=== PATIENT | male | born 1965 | race Caucasian/White ===

== ENCOUNTER 2020-03-05 13:22 | Inpatient (IN) | payer OTHER, SELFPAY ==
[2020-03-05] VITALS (18 sets, daily range): BP systolic 36–127; BP diastolic 24–100; PULSE 97–152; RESP 14–109; TEMP 36.9–37.2; O2SAT 31–100
--- NOTE | ~2020-03-05 | XR_ITS ---
XR chest port-a-cath/central DATE: 03/05/2020 17:45 INDICATION: Central line placement TECHNIQUE: Portable AP chest on 03/05/2020 at 1737 hours COMPARISON: 03/05/2020 portable AP chest at 1633 hours FINDINGS: Interval placement of right internal jugular jugular central venous catheter, the tip overl devang the superior vena cava. There is rightward shift of the heart mediastinum and a large left pleural effusion. Left-sided jugular catheter is again noted. There is concern for aortic or left ventricular perforati on, causing the large acute left pleural effusion and heart and mediastinal shift. The ICU nurse has been notified. Patchy bilateral pulmonary infiltrates with relatively central predominance, suggesting pulmonary luciana ma. ET and NG tubes in satisfactory position. IMPRESSION: Right internal jugular central venous catheter tip overlies superior vena cava. No eviden ce of right pneumothorax Large left pleural effusion with rightward cardiac and mediastinal shift; aortic or left ventricular perforation are a serious consideration given the sudden abrupt large pleural fluid collection on the left Reviewed, dictated and finalized at [facility]. Reviewed, dictated and finalized at location [facility]. IMPRESSION: Right internal jugular central venous catheter tip overlies superio r vena cava. No evidence of right pneumothorax Large left pleural effusion with rightward cardiac and mediastinal shift; aorti c or left ventricular perforation are a serious consideration given the sudden abrupt large pleural fluid collection on the left
--- NOTE | ~2020-03-05 | XR_ITS ---
XR chest ET placement DATE: 03/05/2020 16:40 INDICATION: ET tube placement TECHNIQUE: Portable AP chest on 03/05/2020 at 1635 hours COMPARISON: 03/05/2020 portable AP chest at 1357 hours FINDINGS: ET tube in satisfactory position approximately 2.5 cm above dionicio. Bilateral extensive pulmonary infiltrates are noted, greater centrally and in the lower lung zones, s uggesting pulmonary edema, prominently . Moderately large left pleural effusion, new since only hours before, with interval catheter overlying thoracic aorta, left ventricular area. Consider aortic or ventricular perforation. NG tube in the stomach.. IMPRESSION: New moderately large left pleural fluid collection since [address] acement; consider left ventricular or aortic perforation. Prominent increased bilateral pulmonary infiltrates since 1357 hours today since and pulmonary edema Dr. Mackenzie notified ICU nurse Juan J of the findings on 03/05/2020 at 1718 hours Reviewed, dictated and finalized at [facility]. Reviewed, dictated and finalized at location [facility]. IMPRESSION: New moderately large left pleural fluid collection since 1357 hours following catheter placement; consider left ventricular or aortic perforation. Prominent increased bilateral pulmonary infiltrates since 1357 hours today sinc e and pulmonary edema Dr. Mackenzie notified ICU nurse Juan J of the findings on 03/05/2020 at 1718 hours
--- NOTE | ~2020-03-05 | XR_ITS ---
XR chest 1V portable 03/05/2020 13:54 Indication: Cardiac arrest. STEMI. Procedure: AP portable chest Comparison: No prior studies for comparison. Findings: Endotracheal tube 2.1 cm above the dionicio. NG tube in the stomach. Mild interstitial edema. No pleural effusion or pneumothorax. Borderline heart size. Impression: 1: Mild interstitial edema. Reviewed, dictated and finalized at location A. Impression: 1: Mild interstitial edema.
--- NOTE | ~2020-03-05 | XR_ITS ---
XR abdomen NG/feed tube insert DATE: 03/05/2020 16:40 INDICATION: Orogastric tube placement TECHNIQUE: Supine portable AP view COMPARISON: 03/05/2020 portable AP chest at 1713 hours is not available from PACS at this time. FINDINGS: Limited examination, excluding a portion of the upper abdomen. NG tube in stomach. Bilateral excretion of contrast material. A small amount of contrast material outlines a Deleon cathet er in the relatively evacuated the urinary bladder lumen. IMPRESSION: OG tube in stomach Reviewed, dictated and finalized at [facility]. Reviewed, dictated and finalized at location A. IMPRESSION: OG tube in stomach
--- NOTE | 2020-03-05 13:27 | ECG_ITS ---
Measurements Intervals [place] Rate: 152 P: ME: 0 QRS: -14 QRSD: 104 T: 60 QT: 272 QTc: 433 Interpretive Statements ATRIAL FIBRILLATION WITH RAPID VENTRICULAR RESPONSE VENTRICULAR PREMATURE COMPLEXES INCOMPLETE RIGHT BUNDLE BRANCH BLOCK ANTEROLATERAL ST ELEVATION MYOCARDIAL INFARCT- ACUTE HIGH LATERAL ST ELEVATION MYOCARDIAL INFARCT- ACUTE BASELINE ARTIFACT- V1-V2 ABNORMAL ECG Electronically Signed On 03-05-2020 18:16:33 CDT by Gregory Vasquez D.O.
--- NOTE | 2020-03-05 13:42 | PC.NURSE ---
1342: ROSC achieved. EKG obtained. STEMI declared. cath team called
[2020-03-05 13:48] LABS: Alveolar/Arterial O2 Gradient 595.1 mmHg; Base Excess ABG -15.3 mEq/l (+/-2.0); Carboxyhemoglobin 0.4 % THb (0-2.0); Fractional Inspired Oxygen 100 %; HCO3 ABG 13.6 mEq/l (22.0-26.0); Methemoglobin ABG 0.4 %THb (0-1.5); Oxygen Content ABG 21.2 %vol (16.0-22.0); Oxygen Saturation ABG 90.4 % (95.0-100.0); Oxyhemoglobin 89.7 % THb (90.0-100.0); PCO2 ABG 42.2 mmHg (35.0-45.0); PO2 ABG 75.7 mmHg (80.0-100.0); PO2 FiO2 Ratio Arterial Blood 0.76 %; Reduced Hemoglobin 9.5 %THb (0-5.0); Total Hemoglobin 16.8 g/dL (12.0-18.0)
[2020-03-05 13:48] LABS: Basophils Absolute Auto 0.1 K/mm3 (0.0-0.1); Basophils Percent Auto 0.8 % (0.2-1.2); Eosinophils Absolute Auto 0.2 K/mm3 (0-0.3); Eosinophils Percent Auto 1.6 % (0-4.4); Hematocrit 49.6 % (42.0-52.0); Hemoglobin 16.7 g/dL (14.0-18.0); Immature Granulocyte Absolute 0.45 K/mm3 (0.00-0.031); Immature Granulocyte Percent A 4.3 % (0-0.5); Lymphocytes Percent Auto 42.3 % (18.3-44.2); Mean Corpuscular HGB Conc 33.7 g/dl (32-36); Mean Corpuscular Hemoglobin 29.3 pg (26-34); Mean Platelet Volume 11.8 fl (7.4-10.4); Monocytes Absolute Auto 0.9 K/mm3 (0.1-0.6); Neutrophils Absolute Auto 4.4 K/mm3 (1.3-6.7); Nucleated Red Blood Cells Absolute Auto 0.2 K/mm3 (0.0-0.012); Nucleated Red Blood Cells Perc 1.5 % (0.0-0.2); Platelet Count Result 215 k/mm3 (150-375); Red Cell Distribution Width 12.6 % (11.5-14.5); White Blood Count 10.4 K/mm3 (4.5-10.0)
[2020-03-05 13:50] LABS: Device AMBU BAG; Modified Allen's Test Pass; Site Drawn RIGHT RADIAL; pH ABG 7.125 (7.350-7.450)
--- NOTE | 2020-03-05 13:55 | PC.NURSE ---
1355: Pt taken to computer lab assistant, report given to computer lab assistant nurse
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
[2020-03-05 14:00] LABS: Alanine Aminotransferase 77 U/L (4-50); Albumin Level 3.9 g/dL (3.5-5.1); Alkaline Phosphatase 56 U/L (38-126); Anion Gap 14 mmol/L (8-16); Aspartate Amino Transferase 91 U/L (17-59); Bilirubin,Total 1.5 mg/dL (0.2-1.3); Blood Urea Nitrogen 14 mg/dL (9-20); Calcium 8.5 mg/dL (8.4-10.2); Carbon Dioxide 29 mmol/L (22-30); Chloride 102 mmol/L (98-107); Estimated Glomerular Filt Rate 45; Glucose 150 mg/dL (75-110); Lactate Dehydrogenase 716 U/L (313-618); Potassium 3.8 mmol/L (3.4-5.0); Sodium 145 mmol/L (137-145)
[2020-03-05 14:05] LABS: INR 1.1; Prothrombin Time 14.3 Seconds (11.1-14.7)
[2020-03-05 14:15] LABS: NT Pro B Type Natriuretic Pept 23 PG/ML (5-100); Troponin I 0.043 ng/mL (0.000-0.034)
--- NOTE | 2020-03-05 15:33 | ECG_ITS ---
Measurements Intervals [place] Rate: 120 P: 37 TN: 124 QRS: 57 QRSD: 84 T: 57 QT: 302 QTc: 427 Interpretive Statements SINUS TACHYCARDIA VENTRICULAR PREMATURE COMPLEXES ANTEROSEPTAL ST ELEVATION- CONSIDER ACUTE INFARCT ANTEROLATERAL MYOCARDIAL INFARCT- PROBABLY RECENT BASELINE ARTIFACT- I, II, III, AVR, AVL, AVF, V1-V4 ABNORMAL ECG Electronically Signed On 03-05-2020 18:36:37 CDT by Gregory Vasquez D.O.
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
--- NOTE | 2020-03-05 15:38 | WPDCNINT ---
Assessment and Plan Assessment and plan (1) Acute respiratory failure: Code(s): J96.00 - Acute respiratory failure, unspecified whether with hypoxia or hypercapnia Status: Acute Assessment and Plan: Acute Respiratory failure secondary to . Cardiac arrest chest x-ray showed Mild interstitial edema. ventilator settings reviewed and adjusted Continue full mechanical ventilation support to prevent hypoxemia/hypercarbia and end organ damage. check ABG Low tidal volume ventilation strategy to prevent volutrauma (2) Cardiac arrest: Code(s): I46.9 - Cardiac arrest, cause unspecified Status: Acute Assessment and Plan: asystole/ VFib/ V-tach/ PE a arrest secondary to STEMI (3) ST elevation (STEMI) myocardial infarction: Qualifiers: Involved coronary artery: unspecified coronary artery Qualified Code(s): I21.3 - ST elevation (STEMI) myocardial infarction of unspecified site Code(s): I21.3 - ST elevation (STEMI) myocardial infarction of unspecified site Status: Acute Assessment and Plan: status post PCI and stent placement to LAD Impella placed aspirin. Brilinta, statin (4) Cardiogenic shock: Code(s): R57.0 - Cardiogenic shock Status: Acute Assessment and Plan: Impella management per cardiology Levophed IVF bolus Albumin (5) Bleeding: Code(s): R58 - Hemorrhage, not elsewhere classified Status: Acute Assessment and Plan: patient has blood-tinged output from a NG and ET tube there is also some amount of blood around his gum and teeth initially it appeared that this could bee secondary to traumatic intubation as per ED physician but output continue patient has been on antiplatelet anti coagulation and may have developed stress gastritis or ulcer IV PPI ordered antiplatelet infusion has been stopped 2 units of packed red cells will be transfused especially in light of shock (6) Encephalopathy: Code(s): G93.40 - Encephalopathy, unspecified Status: Acute Assessment and Plan: When patient arrived to ICU he was following commands with all 4 extremities and appropriately nodding head to questions currently sedated (7) Pleural effusion: Code(s): J90 - Pleural effusion, not elsewhere classified Status: Acute Assessment and Plan: see below (8) Acidosis: Code(s): E87.2 - Acidosis Status: Acute Assessment and Plan: bicarb given 4 ampules till now repeat ABG pending Additional Plan Stress ulcer prophylaxis - PPI Nutrition - NPO Code Status - Full Code patient arrived from cath lab technologist status post stent placement in LAD and Impella placement. Patient was following commands and moving all extremities hence TTM protocol was not started. Soon patient became hypertensive. Due to Impella patient poor pulse and noninvasive blood pressure monitoring was inaccurate. Arterial line was placed emergent. Patient also had poor IV access and was on multiple infusions. a right IJ central venous catheter was placed emergently. ETT was adjusted as per chest x-ray. Soon patient became hypotensive. patient was given fluid bolus started on Levophed. Bicarb was given as a cirrhosis suspected. chest x-ray showed large pleural effusion. Radiology was concerned with perforation and hemothorax. Bedside ultrasound did confirm pleural effusion on the left and chest x-ray suggest shift of mediastinum with a right. cardiology was called and bedside echo was performed which was a difficult study with not much information obtained although it did not appear patient had large pericardial effusion on the echo. Type and cross was sent and blood transfusion is ordered. cardiology is planning to transfer patient to [facility]. Spoken to general surgery Dr. Orlando and requested a chest tube placement on the left to relieve pressure and will con
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
[2020-03-05] MEDS: PROPOFOL IV EMULSION 100 ML 3.3 MG IV CONT (16:00)
[2020-03-05] MEDS: EPTIFIBATIDE 0.75 MG/ML 75 MG/100 ML VIAL 17.6 MG IV CONT (16:00)
[2020-03-05 16:26] LABS: Hematocrit 42.1 % (42.0-52.0); Hemoglobin 14.5 g/dL (14.0-18.0); Mean Corpuscular HGB Conc 34.4 g/dl (32-36); Mean Corpuscular Hemoglobin 29.3 pg (26-34); Mean Corpuscular Volume 85.1 fl (80-100); Mean Platelet Volume 11.8 fl (7.4-10.4); Platelet Count Result 271 k/mm3 (150-375); Red Blood Count 4.95 M/mm3 (4.6-6.20); Red Cell Distribution Width 12.7 % (11.5-14.5); White Blood Count 19.8 K/mm3 (4.5-10.0)
--- NOTE | 2020-03-05 16:27 | WPDMODSED ---
Moderate Sedation Note-Pt Data Patient Data Allergies Allergy/AdvReac Type Severity Reaction Status Date / Time bupropion Allergy Intermediate RASH Verified 12/27/15 14:53 erythromycin base Allergy Unknown Dermatitis Verified 09/29/18 14:30 Home Medications Medication Instructions Recorded Confirmed Type levothyroxine 150 mcg tablet 150 mcg PO DAILY #30 tablet 10/12/19 11/02/19 Rx cetirizine 10 mg tablet 10 mg PO DAILY PRN 11/02/19 11/02/19 History zolpidem 10 mg tablet 10 mg PO . Q.h.s. PRN #30 tablet 02/15/20 Rx Current Medications: Active Medications Dextrose (Dextrose 50% 25 Gm/50 Ml Syringe) 12.5 gm IV PUSH PRN PRN; Protocol PRN Reason: Hypoglycemia Enoxaparin Sodium (Enoxaparin 40 Mg/0.4 Ml Syringe) 40 mg SUB-Q DAILY [facility] Famotidine (Famotidine 20 Mg Tablet) 20 mg PO Q12HR [facility] Glucagon (Glucagon For Inj 1 Mg Vial) 1 mg IM PRN PRN; Protocol PRN Reason: Hypoglycemia Glucose (Glucose Oral Gel 15 Gm Of Glucse In 37.5 Gm Tube) 15 gm PO PRN PRN; Protocol PRN Reason: Hypoglycemia Heparin Sodium (Porcine) (Heparin Sodium 5,000 Units/Ml Vial) 400 units IV PUSH PRN PRN PRN Reason: aPTT < 36 Sodium Chloride (Normal Saline Iv) 1,000 mls @ 75 mls/hr IV CONT .[id number] ONE Stop: 03/06/20 04:37 Eptifibatide (Integrilin) 75 mg in 100 mls @ 17.6 mls/hr IV CONT .[id number] [facility] Propofol (Diprivan) 100 mls @ 3.3 mls/hr IV CONT .[id number] [facility]; Protocol Dextrose (Dextrose 5% 1,000 Ml) 1,000 mls @ 100 mls/hr IVPB PRN PRN; Protocol PRN Reason: Hypoglycemia Fentanyl Citrate (Fentanyl 2,500 Mcg/Ns 250 Ml) 2,500 mcg in 250 mls @ 5 mls/hr IV CONT .Q50H [facility]; Protocol Sodium Chloride (Normal Saline Iv) 1,000 mls @ 75 mls/hr IV CONT .[id number] [facility] Heparin Sodium/Dextrose (Heparin For Impella 25,000 Units/500 Ml) 25,000 units in 500 mls @ 2 mls/hr IV CONT .Q24H [facility]; Protocol Norepinephrine Bitartrate (Levophed 8 Mg/D5w 250 Ml) 8 mg in 250 mls @ 9.375 mls/hr IV CONT .[id number] [facility]; Protocol Insulin Aspart (Insulin Aspart (*Bkc) 100 Units/Ml) 2 - 5 units SUB-Q Q6H [facility]; Protocol Levothyroxine Sodium (Levothyroxine Sodium 150 Mcg Tablet) 150 mcg PO DAILY@0630 [facility] Multi-Ingred Cream/Lotion/Oil/Oint (Mineral Oil/Petrolatum,White 1 Applic) 1 applic EACH EYE Q12HR [facility] Ticagrelor (Ticagrelor 90 Mg Tablet) 90 mg PO Q12HR [facility] Sedation/Anesthesia: No previous sedation/anesthesia problems (including family history). REPLACED BY [facility] Family History Family History Mother Patient's mother is , Onset Age: 76 Family history of throat cancer Father Family history of malignant neoplasm, Onset Age: 82 Other Family history of cardiovascular disease Social History Social History Smoking status: Never smoker Alcohol intake: current Gender identity (if verbalized by the patient): Male Mod Sed Physical Exam Physical Exam Pre Procedural Exam: Normal: Appearance, Eyes, Ears, Nose, Neck, Throat, Airway, Lungs, Heart Size, Heart Rate, Heart Rhythm, Neuro Exam, Abdomen, Liver, Kidneys, Spleen, Breasts, Genitalia, Extremities and Skin Hours since solid foods: 8 Hours since liquid intake: 8 Internal Medicine - PN: Obj Da Vital Signs Vital Signs: Vital Signs - 24 hr 03/05/20 13:55 Pulse Rate 152 H Respiratory Rate 26 H Blood Pressure 127/100 H Pulse Oximetry 92 Meds/Results Medications: Active Medications Generic Name Dose Route Start Last Admin Trade Name Freq PRN Reason Stop Dose Admin Dextrose 12.5 gm 03/05/20 15:36 Dextrose 50% 25 Gm/50 Ml Syringe IV PUSH PRN PRN Hypoglycemia Protocol Enoxaparin Sodium 40 mg 03/06/20 09:00 Enoxaparin 40 Mg/0.4 Ml Syringe SUB-Q DAILY [facility] Famotidine 20 mg 03/05/20 21:00 Famotidine 20 Mg Tablet PO Q12HR [facility] Glucagon 1 mg 03/05/20 15:36 Glucagon For Inj 1 Mg Vial IM PRN PRN Hypoglycemia Protocol Glucose 15 gm
--- NOTE | 2020-03-05 16:27 | WPDHPUPDATE1 ---
History and Physical Update Update Date/Time: 03/05/20 1300 History and Physical has been reviewed, including an updated exam of the patient. There are NO changes in the patient's condition. Risks, benefits, and alternatives have been discussed and questions answered. Patient agrees to proceed with procedure.
[2020-03-05] MEDS: fentaNYL CITRATE INJ (*CRX) 100 MCG/2 ML VIAL 50 MCG IV PUSH (16:30)
[2020-03-05] MEDS: AMIODARONE 360 MG/D5W 200 ML 360 MG/200 ML BAG 33.3 MG (16:30)
[2020-03-05] MEDS: FENTANYL 2,500MCG/NS250ML(*CRX 2,500 MCG/250 ML BAG IV CONT (16:30)
[2020-03-05 16:35] LABS: INR 1.9; Prothrombin Time 21.4 Seconds (11.1-14.7)
[2020-03-05 16:37] LABS: Partial Thromboplastin Time 74.8 SECONDS (22.3-36.8)
[2020-03-05 16:40] LABS: Base Excess ABG -6.1 mEq/l (+/-2.0); Carboxyhemoglobin 0.3 % THb (0-2.0); Fractional Inspired Oxygen 100 %; HCO3 ABG 18.6 mEq/l (22.0-26.0); Methemoglobin ABG 0.4 %THb (0-1.5); Oxygen Content ABG 20.7 %vol (16.0-22.0); Oxygen Saturation ABG 97.6 % (95.0-100.0); Oxyhemoglobin 96.6 % THb (90.0-100.0); PCO2 ABG 34.5 mmHg (35.0-45.0); PO2 ABG 105.5 mmHg (80.0-100.0); PO2 FiO2 Ratio Arterial Blood 1.05 %; Reduced Hemoglobin 2.7 %THb (0-5.0); Total Hemoglobin 15.2 g/dL (12.0-18.0); pH ABG 7.349 (7.350-7.450)
[2020-03-05 16:41] LABS: Device VENTILATOR; Modified Allen's Test Pass; Site Drawn LEFT RADIAL
[2020-03-05 16:42] LABS: Arterial Blood Gas PEEP 8 cmH2O; Arterial Blood Gas Tidal Volume 450 ml; Arterial Blood Gas Vent Mode CMV; Arterial Blood Gas Ventilator rate 18 /MIN
[2020-03-05 16:54] LABS: Lactic Acid Reflex 5.7 mmol/L (0.7-2.1)
[2020-03-05] MEDS: NOREPINEPHRINE 8 MG/D5W 250 ML 8 MG/250 ML BAG 9.4 MG IV CONT (17:00)
[2020-03-05 17:43] LABS: Hematocrit 37.3 % (42.0-52.0); Hemoglobin 12.7 g/dL (14.0-18.0)
[2020-03-05] MEDS: SODIUM CHLORIDE 0.9% IV 1,000 ML 999 ML IV CONT (18:00)
[2020-03-05] MEDS: SODIUM BICARBONATE 8.4% 50 MEQ/50 ML VIAL IV PUSH (18:00)
[2020-03-05] MEDS: SODIUM CHLORIDE 0.9% IV 1,000 ML 75 ML IV CONT (18:00)
--- NOTE | 2020-03-05 18:04 | WPDPROCEDUR ---
Procedures Central Line Placement Right IJ: Central Line Date: 03/05/20 Central Line Time: 17:00 Discussed w/ the patient/family/POA,the placement of a central venous catheter, including its clinical necessity/indication & associated potential risks, benifits and alternatives.: Yes The patient/family/POA understand(s) and acknowledge(s) the need to proceed with central venous catheter insertion as an important element of the patient's clinical management.: Yes Time Out Performed: Yes Patient Position: supine Patient placed on monitor/pulse ox: Yes Provider Prep: mask, sterile gown, sterile gloves, Max. sterile barrier precautions, cap and hand hygiene with conventional soap/water or alcohol based hand rub Central line prep: 2% Chlorhexidine scrub Sterile US Technique with sterile gel/sterile probe covers: Yes Central line lumen inserted: triple Length (cm): 16 Depth of Insertion (cm): 16 Post procedure: sutured in place, good blood return, all ports aspirated, flushed, capped, tegaderm, hemostatic disc and aseptic technique maintained throughout procedure Post procedure x-ray: tip of catheter in good position and no pneumothorax seen Patient tolerated procedure: well Complications: none
--- NOTE | 2020-03-05 18:05 | WPDPROCEDUR ---
Procedures Arterial Line Arterial Line Date: 03/05/20 Arterial Line Time: 17:45 Discussed with the patient/family/POA, the placement of an arterial catheter, including its clinical necessity/indication and associated potential risks, benefits and alternatives.: Yes Patient/family/POA and/or understands and acknowledges the need to proceed with the arterial catheter insertion as an important element of the patient's clinical management.: Yes Time Out Performed: Yes Patient Position: supine Strategic Marketing Manager Prep: sterile gown, sterile gloves, mask and hat Site: left and femoral Site Prep: chlorhexidine and sterile drape Technique used: guide wire technique Length: 12 cm Closure/Dressing: suture, antimicrobial disc and tegaderm Patient tolerated procedure: no complications Complications: none
[2020-03-05 18:21] LABS: Alveolar/Arterial O2 Gradient 478.1 mmHg; Base Excess ABG -3.4 mEq/l (+/-2.0); Carboxyhemoglobin 0.2 % THb (0-2.0); Fractional Inspired Oxygen 100 %; HCO3 ABG 20.4 mEq/l (22.0-26.0); Methemoglobin ABG 0.4 %THb (0-1.5); Oxygen Content ABG 17.5 %vol (16.0-22.0); Oxygen Saturation ABG 99.4 % (95.0-100.0); Oxyhemoglobin 97.6 % THb (90.0-100.0); PCO2 ABG 32.9 mmHg (35.0-45.0); PO2 FiO2 Ratio Arterial Blood 2.02 %; Reduced Hemoglobin 1.8 %THb (0-5.0); Site Drawn ARTLINE; Total Hemoglobin 12.4 g/dL (12.0-18.0); pH ABG 7.411 (7.350-7.450)
[2020-03-05 18:22] LABS: Arterial Blood Gas PEEP 8 cmH2O; Arterial Blood Gas Tidal Volume 450 ml; Arterial Blood Gas Vent Mode CMV; Arterial Blood Gas Ventilator rate 18 /MIN; Device VENTILATOR
--- NOTE | 2020-03-05 18:41 | PM.PROC ---
Procedure Note - Detailed Date of procedure: 03/05/20 Pre-op diagnosis: STEMI left hemothorax Post-op diagnosis: same Procedure performed: placement L 32 Fr Chest Tube Description of procedure: Patient was placed in the supine position c L arm raised. After adequate sedation was given, pt was prepped and draped in normal sterile fashion. Timeout was done to verify pt identity as well as procedure being performed. I then made an incision with 15 blade scalpel at the level of the nipple in the anterior axillary line. I then used a Megan clamp to bluntly dissect to the 4th or 5th intercostal space. Once there, I bluntly used the clamp to gain access into the chest cavity. A large amount of bright red blood was noted. I enlarged the opening with the Megan clamp. Once adequately dissected, I placed the [address] into the L chest. Immediately, 1400 ml of bright red blood was noted to fill the atrium. I then clamped the CT given the large amount of blood. Sterile dressing was then placed. Of note, the pt hemodynamics immediately improved with decompression. The pt remains in critically ill condition. Implants: L [address] Anesthesia: GETA Surgeon: Daina Hinton MD Estimated blood loss (mL): 1,500 Drains: Yes Packing: No Pathology: none sent Complications: No immediate complications Condition: critical Disposition: ICU Findings: large amount of bright red blood 1500 ml drained immediately, CT clamped
[2020-03-05 19:00] LABS: Alanine Aminotransferase 226 U/L (4-50); Albumin Level 2.7 g/dL (3.5-5.1); Alkaline Phosphatase 37 U/L (38-126); Anion Gap 11 mmol/L (8-16); Aspartate Amino Transferase 558 U/L (17-59); Bilirubin,Total 1.8 mg/dL (0.2-1.3); Blood Urea Nitrogen 17 mg/dL (9-20); Calcium 7.2 mg/dL (8.4-10.2); Carbon Dioxide 25 mmol/L (22-30); Chloride 100 mmol/L (98-107); Estimated CRCL calculation 59 ml/min; Estimated Glomerular Filt Rate 45; Glucose 253 mg/dL (75-110); Magnesium 2.6 mg/dL (1.6-2.3); Potassium 4.2 mmol/L (3.4-5.0); Sodium 136 mmol/L (137-145); Troponin I > 80.000 ng/mL (0.000-0.034)
[2020-03-05 19:19] LABS: Creatine Kinase 3023 U/L (55-170)
[2020-03-05 19:24] LABS: Reflex Lactic Acid Yes or No Add Lactic
--- NOTE | 2020-03-05 20:51 | ADMGEN ---
This patient, Peng Phillips, was admitted to Intensive Care Unit-8. Patient/family oriented to hospital policies and general routines including ID bracelet, bed and alarms, visiting hours, pain management, procedures, bathroom and other care routines, personal items, smoking policy, room service/diet, and visiting hours. Valuables list has been completed. Information on how to activate the Rapid Response Team has been discussed. Patient/Family are encouraged to report perceived risks to care and to ask questions if they do not understand what they are told or what they should do.
--- NOTE | 2020-03-05 20:51 | PC.NURSE ---
ALL TIMES APPROXIMATE. CLINICAL CARE PROVIDED PROCEEDED DOCUMENTATION DUE TO PATIENTS CRITICAL STATUS Pt. arrived to ICU 8 at 1600 with amiodarone, propofol, and Integrilin infusing. Impella in place P8 settings, impella rep at bedside, equipment checked and verified with cardiac cath team. After arrival pt sustained narrow pulse pressures and hypotension. Dr. Webster at bedside, arterial and central lines inserted. Levophed drip initiated for hypotension and titrated per verbal instruction of MD Olmstead and Darin in room. Max dose given was 30mcg/min. Dr. Olmstead and Dr. Dee at bedside obtained ultrasound imaging after critical chest xray results were called from Dr. Mackenzie with radiology. Integrilin was stopped at approximatedly [address] Olmstead due to concern patient could be bleeding inside the chest cavity. Concern for hemothroax vs rupture. Stat page placed placed to Dr. Hinton with general surgery. Dr. Hinton arrived and placed left sided chest tube with immediate spontaneous blood return. After draining approximately 1600cc of sanguinous fluid from chest cavity pulse pressures improved per impella readings. Per Jamaal Gao, and Darin, team all agreeable to leave chest tube clamped. Pt. received 4mg IV versed push for chest tube placement per Dr. Webster and Dr. Hinton verbal order. Dose confirmed with Kristine PRESLEY. Chest tube remained clamped. Dr. Olmstead confirmed transfer for patient to [facility] with receiving physician and cardiothoracic surgeon. Per medical team at bedside, the [facility] team was paged to transport patient. Per MD Healy give 3 units of PRBC and 2 unit of FFP bolus STAT. Blood products documented in TAR flowsheet. A total of 6 ampules of bicarb were administered while patient was in ICU under direct verbal order and instruction from Dr. Webster. Doses confirmed and administered. All medication titrations and administration were performed under direct order and supervision of the medical team that remained at the patients bedside including Dr. Webster with critical care and Dr. Olmstead with cardiology.
--- NOTE | 2020-03-05 21:05 | PC.NURSE ---
upon arrival to ICU patient was following commands. Per Dr. Webster no need for head CT and cancel all hypothermia protocol orders for post arrest ROSC.
--- NOTE | 2020-03-05 21:13 | PC.NURSE ---
Patient removed from ICU monitor at approximately 1915 and placed on airevac monitoring system. Pt ventilated with BVM and airevac transport ventilator. Pt. loaded into transport helicopted at approximately 1999. pt. vital signs remained labile but stable throughout transport and [facility] Fentanyl, propofol, amio, and levophed infusions sent per pump with transport team. Impella transported on confirmed setting P8. Length of time to safely transfer pt. from ICU bed to helicopter transport required approximately 45 minutes due to size of patient and life sustaining equipment transported.
--- NOTE | 2020-03-05 21:31 | PC.NURSE ---
Patients was given several updated by the medical team including Dr. Webster and Dr. Olmstead throughout procedures and care provided. at patients bedside at approximately 1830 prior to patients transfer. remained with patient until pt. taken out of ICU at approximately 1915. Condition updates given throughout time, questions answered, informed of pt. transfer as soon as bed assignment was given.
--- NOTE | 2020-03-10 10:17 | PM.TDS ---
Transfer Discharge Sum: Prov Provider Date of admission: Date of service 03/05/20 13:56 Primary care physician: UNKNOWN,DOCTOR Admitting clinician: Wily Helms MD DS: Admitting Diagnosis Admitting Diagnosis Admitting Diagnosis: STEMI DS: Discharge Diagnosis Discharge Diagnosis (1) Hemothorax: Code(s): J94.2 - Hemothorax Status: Acute Assessment and Plan: Apparently patient developed massive left hemothorax that was thought to be related to fractured ribs from the CPR. Surgery was consulted were inserted chest tube on bedside with immediate drainage of at least 1 L of bloody effusion. The chest tube was clamped given massive bleeding. Immediate resuscitation done using 3 units of packed RBCs, 2 or doses of IV albumin, 500 cc saline. I was on bedside all the time for continuous 3 hour managing along with critical care team the cardiogenic shock and the massive bleeding. I did call [facility] and discussed the case with the multifocal lens inspector and the trauma surgeon and they agreed to transfer the patient to [facility] via helicopter. (2) Cardiogenic shock: Code(s): R57.0 - Cardiogenic shock Status: Acute Assessment and Plan: Patient is has Impella and currently on Levophed given the massive bleeding (3) ST elevation (STEMI) myocardial infarction: Qualifiers: Involved coronary artery: unspecified coronary artery Qualified Code(s): I21.3 - ST elevation (STEMI) myocardial infarction of unspecified site Code(s): I21.3 - ST elevation (STEMI) myocardial infarction of unspecified site Status: Acute Assessment and Plan: Is status post STEMI with totally occluded LAD. It was stented successfully. After the stenting he was not Integrilin drip because patient was not given any aspirin or Brilinta. Plan was to keep the Integrilin for 6 hours until the aspirin and the Brilinta was given. However patient had NG tube and was vomiting and the for the aspirin and the Brilinta could not be administered. Transfer Discharge Sum: Med Medications Active and Home Medications: Home Medications levothyroxine 150 mcg tablet 150 mcg PO DAILY #30 tablet 10/12/19 [Rx Confirmed 11/02/19] cetirizine 10 mg tablet 10 mg PO DAILY PRN 11/02/19 [History Confirmed 11/02/19] zolpidem 10 mg tablet 10 mg PO . Q.h.s. PRN #30 tablet 02/15/20 [Rx] Transfer Discharge Sum: Hosp Hospital Course Hospital course: Peng Phillips is a 55 year old male no significant past medical history who was doing biking for 20 minutes when he started to have chest pain. His friend to come to the car and was driving to outside hospital and when there was close to the hospital patient apparently arrested. Chest compressions started immediately upon arrival to the hospital with defibrillation. He was in VFib and ventricular tachycardia with massive anterior ST-elevation [place]. Immediately was rushed to the [facility] laboratory with the LAD was found to be totally occluded in the proximal segment was stented successfully. Ejection fraction 35-40% with anterior wall hypokinesis. Impella was inserted. Patient was transferred to the unit and after 1 hour I was called because of low blood pressure and the chest x-ray that was done to confirm the endotracheal tube position found a massive left pleural effusion that was thought to be related to hemothorax from chest compressions and fractured ribs. Surgery was consulted were inserted chest tube on bedside with immediate drainage of at least 1 L of bloody effusion. The chest tube was clamped given massive bleeding. Immediate resuscitation done using 3 units of packed RBCs, 2 or doses of IV albumin, 500 cc saline. I was on bedside all the time for continuous 3 hour managing along with critical care team the cardiogenic shock and the massive bleeding. I did call [facility] and discussed the case with the multifocal lens inspector and the trauma surgeon and they agreed to transfer the patient to
== END 2020-03-05 20:15 | disposition short-term general hospital (02) | DRG 215 ==
LOC: ANHED 13:52 → ANHICU 14:07
PROVIDERS: Emergency Medicine; Internal Medicine; Admitting Provider Internal Medicine Cardiovascular Disease; Emergency Provider Emergency Medicine; Visit Provider Internal Medicine Cardiovascular Disease
PROC: 4A023N7 Measurement of Cardiac Sampling and Pressure, Left Heart, Percutaneous Approach (ICD-10-PCS; CPT 93452; principal; 2020-03-05 14:00)
PROC: 02HA3RZ Insertion of Short-term External Heart Assist System into Heart, Percutaneous Approach (ICD-10-PCS; 2020-03-05 14:00)
PROC: 02HA3RZ Insertion of Short-term External Heart Assist System into Heart, Percutaneous Approach (ICD-10-PCS; CPT 33979; 2020-03-05 14:00)
DX: I21.3 ST elevation (STEMI) myocardial infarction of unspecified site (principal); R57.0 Cardiogenic shock; I46.9 Cardiac arrest, cause unspecified; J96.00 Acute respiratory failure, unspecified whether with hypoxia or hypercapnia; G93.40 Encephalopathy, unspecified; J94.2 Hemothorax; E87.2 Acidosis; I25.10 Atherosclerotic heart disease of native coronary artery without angina pectoris; E03.9 Hypothyroidism, unspecified; F17.220 Nicotine dependence, chewing tobacco, uncomplicated
CPT/HCPCS: 31500; 33990; 36415; 36430; 36600; 51702; 71045; 80053; 82375; 82550; 82805; 82948; 83050; 83605; 83615; 83735; 83880; 84484; 85014; 85018; 85025; 85027; 85610; 85730; 86850; 86900; 86901; 86923; 87040; 92950; 93005; 93458; 99291; C1725; C1729; C1751; C1769; C1874; C1887; C1894; C9606; J0171; J0282; J0330; J0461; J0583; J1327; J1644; J2250; J2370; J2704; J3010; J7030; J7060; L1830; P9016; P9017

== ENCOUNTER 2020-09-22 10:30 | Outpatient (RCR) | payer OTHER, SELFPAY ==
--- NOTE | 2020-07-13 11:20 | PCCPR ---
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
== END 2020-09-26 11:02 | disposition home or self-care (01) ==
LOC: ANHCPREHAB 10:30
PROVIDERS: PCP Family Medicine
DX: Z95.5 Presence of coronary angioplasty implant and graft (principal); I25.2 Old myocardial infarction
CPT/HCPCS: 93798

== ENCOUNTER 2025-03-26 00:23 | Day surgery (SDC) | payer OTHER, SELFPAY ==
--- OUTSIDE RECORDS SUMMARY | 2010-03-17 10:15 | XMS_ITS | Continuity of Care Document ---
Author Organization [facility] Address [address] [place] [address] Phone Care Team Providers Care Insecticide Sprayer Name Role Phone Selvin Ruelas Unavailable Unavailable Procedures Procedure Date Post-op Follow-up Visit Post-op Follow-up Visit Remove Cataract, Insert Lens Office/outpatient Visit, Est Echo Exam Of Eye Office/outpatient Visit, Est Office/outpatient Visit, New Advance Directives Directive Yes / No Effective Date File Name No Information Encounters Encounter Description Practice Location Reason(s) For Visit Diagnoses Date Provider Providers Copied on Encounter [facility], [address] [place] [address] [address], [place], [place], [id number], [place] tel:[phone] [facility] No Information Oct-2 2-201 0 Jessenia Montalvo. [address] [place] , [address], [place], [address], [place]. tel:[phone] [facility], [address] [place] [address] [address], [place], [place], [id number], [place] tel:[phone] [facility] [place] No Information Oct-0 8-201 0 Jessenia Montalvo. [address], [address], [place], [address], [place]. tel:[phone] [facility], [address] [place] [address] [address], [place], [place], [id number], [place] tel:[phone] [facility] No Information 0 Jessenia Montalvo. [address] [place] [address] , [address], [place], [place], [facility], . tel:[phone] Office/outpat ient Visit, [facility], [address] [place] [address] [address], [place], [place], [id number], [place] tel:[phone] [facility] No Information 0 Jessenia Montalvo. [address] [place] [address] , [address], [place], [place], [facility], [place]. tel:[phone] Referring Provider: Selvin Pickering, [address] [place] [address] [address], [place], [facility]. tel:[phone] Office/outpat ient Visit, [facility], [address] [place] [address] [address], [place], [place], [id number], [place] tel:[phone] [facility] No Information 0 Kalia Bray. [address] [place] [address], [facility], [place]. tel:[phone] Referring Provider: Asa hutchins, [address] [place] [address], [place], [place], [facility]. tel:[phone] Office/outpat ient Visit, [facility], [address] [place] [address] [address], [place], [place], [id number], [place] tel:[phone] [facility] [place] No Information 0 Kalia Asa. [address] [place] [address], [facility], [place]. tel:[phone] Family History Family Member Type Diagnosis Age At Onset No Information Payers Payer name Insurance type Covered republican ID Authoriza tion(s) No Information Social History Type Description Quantity Date Captured Comments Sex Male Smoking Status No Information Chief Complaint And Reason For Visit No Information Reason For Referral Reason For Referral No Information History Of Present Illness Encounter Date Complaint History Of Prese nt Illness No Information Functional Status Date Functional Assessmen t No Information Instructions Date Instruction Additional Infor mation No Information Assessments Type Assessment Date No Information Patient Care Teams Name Effective Dates (start - stop) Status Members No Information
--- OUTSIDE RECORDS SUMMARY | 2020-07-22 05:52 | XMS_ITS | Continuity of Care Document ---
Author Organization [facility] Address [address] [place] [address] Phone Care Team Providers Care Cilnical Scientist Name Role Phone Zan Moore MD Unavailable Unavailable Allergies, Adverse Reactions, Alerts Substance Reaction Status Criticality erythromycin base RashRash Active No Informa tion BUPROPION HCL RashRash Active No Information PENICILLIN RashRash Active No Information Medications Medication Instructions Dosage Effective Dates (start - stop) Status Comments acetaminophen 500 mg capsule take 1 capsule by oral route every 6 hours as needed 500 MG - Active aspirin 81 mg tablet,delayed release take 1 tablet by oral route every day 81 MG - Active atorvastatin 10 mg tablet take 1 tablet by oral route every day 10 MG - Active Betadine 10 % topical solution - Active clopidogrel 75 mg tablet take 1 tablet by oral route every day 75 MG - Active gabapentin 100 mg capsule take 2 capsule by oral route every day 200 MG - Active hydralazine 100 mg tablet take 1 tablet by oral route 3 times every day with food 100 MG - Active isosorbide dinitrate 5 mg tablet take 1 tablet by oral route 2 times every day 5 MG - Active Tirosint 150 mcg capsule take 1 capsule by oral route every day 150 MCG - Active metoprolol tartrate 25 mg tablet take 1 tablet by oral route 2 times every day 25 MG - Active pantoprazole 40 mg tablet,delayed release take 1 tablet by oral route every day 40 MG - Active sertraline 50 mg tablet take 1 tablet by oral route every day 50 MG - Active Procedures Procedure Date REMOVE TUNNELED CVC Radiation Exposure Documented To Be Coded Removal tunneled cv cath Fluoroguide for vein device Removal tunneled cv cath Fluoroguide for vein device Advance Directives Directive Yes / No Effective Date File Name No Information Encounters Encounter Description Practice Location Reason(s) For Visit Diagnoses Date Provider Providers Copied on Encounter [facility], [address] [place] [address], [id number], tel:[phone] [facility] No Information Albovias Zan. [address] [place] [address], [id number], . tel:[phone] [facility], [address] [place] [address], [id number], tel:[phone] [facility] Albovias Zan. [address] [place] [address], [id number], . tel:[phone] Referring Provider: Adam Germain, [address] [place] [address], [facility], [place], [address]. tel:[phone] [facility], [address] [place] [address], [id number], tel:[phone] [facility] Albamberas Zan. [address] [place] [address], [id number], . tel:[phone] Referring Provider: Adam Germain, [address] [place] [address] 206, [facility], [place], [address]. tel:[phone] As per patient privacy policy some of the clinical information may not be visible. Family History Family Member Type Diagnosis Age At Onset No Information Payers Payer name Insurance type Covered alliance party ID Authoriza tion(s) No Information Social History Type Description Quantity Date Captured Comments Sex Male Smoking Status No Information Gender Identity Male Chief Complaint And Reason For Visit No Information Reason For Referral Reason For Referral No Information Plan Of Treatment Date Type Action Status Future Order: Radiology Order Up per Body Flouroscopy (67920L), Ordered on: Ordered History Of Present Illness Encounter Date Complaint History Of Prese nt Illness No Information Functional Status Date Functional Assessmen t No Information Instructions Date Instruction Additional Infor mation No Information Assessments Type Assessment Date No Information Patient Care Teams Name Effective Dates (start - stop) Status Members No Information
[2025-03-10 13:29] VITALS: BMI 29.3
--- NOTE | 2025-03-10 14:00 | PC.NURSE ---
Spoke with PATIENT regarding medication PLAVIX. PATIENT verbalizes understanding that the last dose is to be taken on 03/14/2025 and the Endoscopist will instruct them when to restart after the procedure. Patient to start ASPIRIN 81 MG daily while off Plavix.
--- OUTSIDE RECORDS SUMMARY | 2025-03-26 00:25 | XMS_ITS | Encounter Summary ---
Author Organization [facility] Address [address] [place] [address] Phone Care Team Providers Care Scale Operator Name Role Phone Alexander Pike MD Unavailable [phone] Miscellaneous, Not In File Unavailable Unava ilable Juan Austin MD Primary Care Provider [phone] Sherri Cat MD Unavailable [phone] Marianela Maki RN Unavailable Unava ilable Cabrera Lovell RN Unavailable Unav ailable Bee Gandhi Unavailable Unavailable Bee Gandhi Unavailable Unavailable Encounter Details Date Type Department Care Team (Late st Contact Info) Description 03/01/2025 Telephone [facility] Medicine Cardiology [address] [facility] Advanced Medicine 8th [place] [address] [place] [id number] Sherri Cat MD [address] [place] [address] Social History Tobacco Use Types Packs/Day Years Used Date Smoking Tobacco: Never Passive Smoke Exposure: Past Smokeless Tobacco: Former Chew Quit: 2020 Alcohol Use Standard Drinks/Week Comments Not Currently 0 (1 standard drink = 0.6 oz pur e alcohol) AUDIT-C Answer Date Recorded Q1: How often do you have a drink containing alc ohol? Monthly or less 11/05/2024 Q2: How many drinks containi ng alcohol do you have on a typical day when you are drinking? 1 or 2 11/05/2024 Q3: How often do you have si x or more drinks on one occasion? Never 11/05/2024 Personal Safety Answer Date Recorded Have you ever been in or are you currently in a harmful physical or emotional relationship or is someone making you feel afraid or unsafe? 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 Gender Identity Not on file Sexual Orientation Not on file documented as of this encounter Miscellaneous Notes * Telephone Encounter - Cabrera Lovell RN - 03/02/2025 9:36 AM CDT Faxed new clearance with recommendations to [phone] * Telephone Encounter - Danelle Beckett - 03/01/2025 4:09 PM CDT [facility] calling stating the form for clearance was not checked whether pt can hold Plavix or not please complete and fax to [phone] 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 09/27/2020 documented as of this encounter Care Teams Scale Operator Relationship Specialty Start Date End Date Juan Austin MD [address] [address] PCP - General Family Medicine 04/22/20 Alexander Pike MD Surgeon Cardiothoracic Surgery 04/20/20 Miscellaneous, Not In File 04/20/20 Sherri Cat MD [id number] [address] Mattress Packer Cardiology 01/28/25 Marianela Maki, security managerGeneral Worker 01/28/25 Cabrera Lovell, security managerGeneral Worker 01/28/25 Bee Gandhi Primary Clerical Adviser Transplant 01/28/25 Bee Gandhi Primary Clerical Adviser 02/11/25 documented as of this encounter
--- OUTSIDE RECORDS SUMMARY | 2025-03-26 00:25 | XMS_ITS | Clinical Summary ---
Author Organization [facility] Address [address] [place] [address] Care Team Providers Care Lead Section Supervisor Name Role Phone Juan Austin MD Primary Care Provider [phone] Source Comments [facility],non-owned Affiliates and Associated Physician Practices is amultiple site organization consisting of ambulatory clinics and hospital sitesin [place], [place], [place] and [place]. This disclosure is being madepursuant to the Care Everywhere program and may not contain all information available regarding this patient. Last updated 18.[facility] Allergies Active Allergy Reactions Criticality Noted Date Comments Erythromycin Urticaria Medium 08/09/2017 Penicillins Urticaria Medium 08/09/2017 Medications * Be aware that medications may not be up to date on this document. Alwaysverify current medications with the patient. levothyroxine (SYNTHROID) 150 MCG tablet Take 150 mcg by mouth daily before breakfast Active Immunizations Immunization Administration Dates Next Due INFLUENZA VACCINE, QUADR. 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 Gender Identity Not on file Sexual Orientation Not on file Last Filed Vital Signs Vital Sign Reading Time Taken Comments Blood Pressure 118/66 08/09/2017 11:00 AM CDT Pulse 68 08/09/2017 11:00 AM CDT Temperature 36.7 C (98.1 F) 08/09/2017 11:00 AM CDT Respiratory Rate 16 08/09/2017 11:00 AM CDT Oxygen Saturation 96% 08/09/2017 11:00 AM CDT Inhaled Oxygen Concentration - - Weight 95.3 kg (210 lb) 08/09/2017 11:00 AM CDT Height 177.8 cm (5' 10) 08/09/2017 11:00 AM CDT Body Mass Index 30.13 08/09/2017 11:00 AM CDT Plan of Treatment Health Maintenance Due Date Last Done Comments COLOGUARD (AGES 45-75) - COL ON CA SCREENING 1965 COLON MONITORING 1965 COLONOSCOPY - COLON CA SCREENING 1965 CT COLONOGRAPHY - COLON CA SCREENING 1965 Colorectal Cancer Screening 1965 FIT - COLON CA SCREENING 1965 FLEX SIG - COLON CA SCREENING 1965 LIPID TESTING 1965 HIV SCREENING 01/26/1980 HEPATITIS C SCREENING 01/21/1983 DTAP/TDAP/TD VACCINES (1 - Tdap) 01/26/1984 PNEUMOCOCCAL VACCINE 50+ (1 of 1 - PCV) 2015 ZOSTER VACCINE (1 of 2) 2015 SCREENING FOR DIABETES 08/09/2017 DEPRESSION SCREENING 05/27/2024 COVID-19 VACCINE (1 - 2023-2 5 season) 2025 INFLUENZA VACCINE (#1) 2025 04/26/2017 Respiratory Syncytial Virus (RSV) Vaccine Pt: or over 60 yrs (1 - 1-dose 75+ series) 01/26/2040 HEPATITIS B VACCINE Aged Out No longe r eligible based on patient's age to complete this topic HIB VACCINE Aged Out No longer eligi ble based on patient's age to complete this topic HPV VACCINE Aged Out No longer eligi ble based on patient's age to complete this topic MENINGOCOCCAL (Group B) VACC INE SHARED DECISION-MAKING Aged Out No longer eligibl e based on patient's age to complete this topic MENINGOCOCCAL GROUPS A/C/Y/W VACCINE Aged Out No longer eligible b ased on patient's age to complete this topic Insurance [facility] Care Teams Lead Section Supervisor Relationship Specialty Start Date End Date Juan Austin MD PCP - General Family Medicine 04/26/17
--- OUTSIDE RECORDS SUMMARY | 2025-03-26 00:25 | XMS_ITS ---
Author Organization [facility] [address] Address [address] [place] [address] Care Team Providers Care Area Forester Name Role Phone Alexander Pike MD Unavailable [phone] Miscellaneous, Not In File Unavailable Unava ilable Juan Austin MD Primary Care Provider [phone] Sherri Cat MD Unavailable [phone] Marianela Maki RN Unavailable Unava ilable Cabrera Lovell RN Unavailable Unav ailable Thier, [place] Unavailable Unavailable Thier, [place] Unavailable Unavailable Dialysis Access Sites Type Status Location Placement Date Removal Da te Hemodialysis Cath Double Inactive Right Breast 0 01/18/2021 Hemodialysis Cath Triple Inactive Right N nona (side) - Anterior 03/26/2020 04/18/2020 Procedures Procedure Name Priority Date/Time Associated Diagnosis Comments ECG 12-LEAD Routine 03/17/2025 1:50 PM CDT Pacemaker DEVICE CHECK - REMOTE Routine 02/05/2025 4:22 AM CDT PSA DIAGNOSTIC Routine 06/06/2023 8:49 AM SPRAY MAKER HEPATITIS C ANTIBODY Timed 04/18/2020 3:25 PM SPRAY MAKER from Last 3 Months or Most Recently Relevant to Health Maintenance Allergies Active Allergy Reactions Criticality Noted Date Comments Bupropion Other (See comments) Low 03/29/2020 Oral thrush Erythromycin Hives,Stomach upset Medium 03/29/2020 Penicillins Hives Medium 03/06/2020 Tolerated CTR, cefepime & meropenem Zosyn ok per Fellow 03/29 Medications clopidogreL (PLAVIX) 75 mg tablet Take 1 tablet (75 mg total) by mouth daily 30 tablet 11 0 Active Additional Information Patient taking differently:75 mg oralEvery morning, Indications: Myocardial Reinfarction Prevention, Informant: Self, Reported on 03/17/2025 zolpidem (AMBIEN) 10 mg tabletIndicati ons:Sleep-Onse t Insomnia Take 0.5 tablets (5 mg total) by mouth nightly 1 Active pregabalin (LYRICA) 75 mg capsuleIndicat ions:Necrotic ulceration of fingers (HCC) Take 1 capsule (75 mg total) by mouth 2 (two) times a day 60 capsule 2 1 Active Additional Information Patient taking differently:75 mg oralNightly, Indications: Postherpetic Neuralgia, Informant: Self, Reported on 03/17/[address] (CYMBALTA) 30 mg capsuleIndicat ions:Anxiety with Depression,Benjamin ropathic Pain Take 1 capsule (30 mg total) by mouth nightly Active cetirizine (ZyrTEC) 10 mg tabletIndicati ons:Seasonal Allergic Rhinitis Take 1 tablet (10 mg total) by mouth every morning Active levothyroxine (SYNTHROID) 125 mcg tabletIndicati ons:hypothyroi dism Take 1 tablet (125 mcg total) by mouth pipelines supervisor before breakfast 4 Active acetaminophen (TYLENOL) 500 mg tablet Take 2 tablets (1,000 mg total) by mouth every 6 (six) hours as needed for pain 45 tablet 5 Active cyclobenzaprin e (FLEXERIL) 10 mg tablet Take 0.5 tablets (5 mg total) by mouth 3 (three) times a day as needed for muscle spasms 10 tablet 5 Active oxyCODONE (ROXICODONE) 5 mg immediate release tabletIndicati ons:Pain Take 1 tablet (5 mg total) by mouth every 4 (four) hours as needed for pain 5 tablet 5 Active hydrALAZINE (APRESOLINE) 25 mg tabletIndicati ons:hypertensi on Take 2 tablets (50 mg total) by mouth daily AND 1 tablet (25 mg total) nightly. 270 tablet 3 5 026 Active isosorbide dinitrate (ISORDIL) 20 mg tablet Take 2 tablets (40 mg total) by mouth every morning AND 1 tablet (20 mg total) nightly. 270 tablet 3 5 026 Active atorvastatin (LIPITOR) 10 mg tabletIndicati ons:hyperlipid emia Take 1 tablet (10 mg total) by mouth nightly 90 tablet 3 5 026 Active metoprolol XL (TOPROL-XL) 25 mg extended release tabletIndicati ons:coronary artery disease,hypert ension Take 1 tablet (25 mg total) by mouth daily 90 tablet 3 5 026 Active empagliflozin (JARDIANCE) 10 mg tabletIndicati ons:Heart Failure Take 1 tablet (10 mg total) by mouth daily 30 tablet 11 5 026 Active empagliflozin (JARDIANCE) 10 mg tabletIndicati ons:Heart Failure Take 1 tablet (10 mg total) by mouth daily 30 tablet 11 4 025 [facility]contin [facility], Clinic, or Other Facility Administered Medication Ordered Dose Route Frequency Start Date End Date Status perflutren protein-a (OPTISON) 3 mL in sodium chloride 0.9% 8 mL syringe 1 - 8 mL IV Once in imaging 04/28/2024 Active Active Problems Problem Noted Date Diagnosed Date Acquired aberrant fingernail 09/24/2024 SSS (sick sinus syndrome) 06/03/2023 Neuroma of hand 01/23/2022 Overview (01/23/2022): Added automatically from request for surgery [id number] Streptococcus infection 02/08/2021 Staphylococcus infection 02/08/2021 High risk medication use 02/08/2021 Osteomyelitis of toe 09/23/2020 Overview (09/23/2020): Added automatically from request for surgery [id number] Nail remnant of finger 07/29/2020 Overview (07/29/2020): Added automatically from request for surgery [id number] Complete heart block 05/23/2020 Necrotic ulceration of fingers 05/06/2020 Overview (05/06/2020): Added automatically from request for surgery [id number] Ischemic cardiomyopathy 05/03/2020 Chronic systolic congestive heart failure (CMS/H CC) 05/03/2020 Coronary artery disease invo lving [place] heart with unstable angina pectoris 05/03/2020 Dry gangrene 04/17/2020 Assessment & Plan (04/18/2020 10:13 AM SPRAY MAKER): -Multiple digits on fingers and toes with necrosis likely due to high dose levophed. -Betadine BID and follow closely. -Consider PRS consult for monitoring and outpatient follow up. Anxiety 04/17/2020 Assessment & Plan (04/19/2020 8:39 AM SPRAY MAKER): Patient has anxiety to the point of not sleeping due to racing thoughts. He is regularly tearful and has benefited in the past from SSRI, zoloft started 04/17. STEMI (ST elevation myocardial infarction) 04/13 Assessment & Plan (04/19/2020 8:38 AM SPRAY MAKER): 03/05 Stemi s/p HEATHER to LAD -ASA daily -statin on hold 2/2 transaminitis -plavix daily Transaminitis 04/13/2020 Assessment & Plan (04/18/2020 10:13 AM SPRAY MAKER): 2/2 cardiogenic shock -Holding statin, tylenol -LFt's continue to improve, still jaundice on exam. 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 Assessment & Plan (04/19/2020 8:37 AM SPRAY MAKER): -Patient with photosensitivity, redness and burning in bilateral eyes -04/10 Opthalmology consulted- keratopathy due to dry eyes now s/p filament removal bilaterally Recs: refresh drops q 2 hours while awake, stopped erythromycin oint as patient is refusing, Moxifloxacin drips 4 x a day and refresh ointment 4 x a day with warm compresses 3 x a day Acute kidney failure 04/07/2020 Assessment & Plan (04/19/2020 8:42 AM SPRAY MAKER): Likely ATN in the setting of hemorraghic shock and hypoperfusion Renal team following - SLED via HD catheter -04/10 no SLED -04/11 SLED during day to help with vent wean and fluid status -04/13 plan sled overnight, transitioned to iHD Sunday 04/15 - R tunneled HD cath placed 04/18 - SW to check with renal on outpatient HD set up plans as he is medically ready for discharge in a few days. Cardiogenic shock 03/05/2020 Overview (03/15/2020): Added automatically from request for surgery [id number] Assessment & Plan (04/13/2020 11:31 AM SPRAY MAKER): STEMI- 03/05- Reported to have ~20 minutes of CPR at OSH with ROSC and good mental status prior to arrival, Impella placed at osh - 03/06 VV-ECMO (Left femoral vein inflow, Right IJ outflow to patient). - 03/11 Transitioned to VA-V ECMO with mild-moderate biventricular dysfunction, then to - 03/16 VA chg to VV ECMO - 03/24 oxygenator exchange - 03/26 ECMO decannulation - Epi off 04/05 - 04/07 ECHO upper nl LV size w/anteroapical hypokinesis, LVEF 50%, mod DD, nl RV size and Sys fn, moderate LAE. Postoperative respiratory failure 03/05/2020 Overview (03/18/2020): Added automatically from request for surgery [id number] Assessment & Plan (04/19/2020 8:36 AM SPRAY MAKER): - Extravasating hemothorax on L side, relieved with OR washout (03/11). - Supported on VV ECMO, unsuccessful attempt at decannulation on 03/26. - Klebsiella PNA, s/p 7 day course Ceftriaxone. - Copious bloody secretions in ETT circuit. Tracheostomy postponed - Bronchoscopy and ETT exchange 03/24 - VV ECMO decannulation 03/26 - 03/29: CT C/A/P w/ contrast: R upper lobe consolidation, c/f PNA, no growth trach aspirate - 03/30: Trach (Shiley 8 cuffed) placed by thoracic - Slow vent weaned to off-04/12 am - 04/15 Trach changed to Himanshu 5 w/hub -capped during the day with strong voice - Cont aggressive pulm hygiene, mobilize, decannulate today Assessment & Plan (03/30/2020 9:50 AM SPRAY MAKER): Plan for bedside tracheostomy today. Discussed with ICU team and cardiac surgery team who feel that it is safe to proceed today. Spoke with patient's to update her as well and will let her know when the procedure is complete. Anemia 03/05/2020 Overview (03/21/2020): Added automatically from request for surgery [id number] Assessment & Plan (04/15/2020 1:50 PM SPRAY MAKER): - S/p 03/22 EGD and 2 hemoclips to bleeding gastric ulcer - Protonix 40 IV BID -04/07 1 unit PRBC given for hgb of 7.8 -14 trach bleeding after downsize PRBC given for HGB 7.5 -04/10 Transfuse another unit this am Trach bleeding stable - Transfuse Hgb < 8 or significant ongoing bleeding - Daily CBC-currently stable Assessment & Plan (03/25/2020 10:30 AM CDT): Patient with recent GI bleed s/p EGD with clip placement of gastric ulcers x2. Received 2U prbcs yesterday. Hgb today is 8.1 - Thoracic team consulted for PEG transfer. No plans to perform at this time given recent GI bleed. Bradycardia, unspecified 03/05/2020 Overview (03/30/2020): Added automatically from request for surgery [id number] Assessment & Plan (04/07/2020 11:02 PM SPRAY MAKER): - 03/25: 45 seconds of asystole rec 6 chest compressions ~01:00 and again this AM for brief period - TVP via cordis on 03/25 ->See procedure note - EP consult - PPM when more stable - 03/29: Patient became bradycardic s/p dilaudid x1 and required pacing; MAPs in 40s -> improved with epi - 03/30: Dual chamber Medtronic pacemaker placed by EP; emilia arrhythmias likely due to vagal phenomenon, but patient is at risk for AV conduction disease given nature of STEMI - 04/05 small run of VT, lytes normal, 2g mag given Immunizations Immunization Administration Dates Next Due Influenza, Quadrivalent, Belinda l Culture-based MDCK, Preservative Free, Antibiotic Free, Intramuscular 05/09/2021 Influenza, Quadrivalent, Spl it, Intramuscular 02/26/2019 Influenza, Quadrivalent, Spl it, Preservative Free, Intramuscular 02/11/2020,02/25/2018,04/26/2017 Influenza, Trivalent, Preser vative Free, Intramuscular 02/28/2016 Influenza, Unspecified 02/19/2023,02/22/2020 Social History Tobacco Use Types Packs/Day Years Used Date Smoking Tobacco: Never Passive Smoke Exposure: Past Smokeless Tobacco: Former Chew Quit: 2019 Alcohol Use Standard Drinks/Week Comments Not Currently [...] on file Legal Sex Male 2:24 AM SPRAY MAKER Gender Identity Not on file Sexual Orientation Not on file Last Filed Vital Signs Vital Sign Reading Time Taken Comments Blood Pressure 120/78 03/17/2025 1:52 PM CDT Pulse 83 03/17/2025 1:52 PM CDT Temperature 36.2 C (97.2 F) 11/05/2024 9:25 AM CDT Respiratory Rate 13 11/05/2024 9:40 AM CDT Oxygen Saturation 95% 03/17/2025 1:52 PM CDT Inhaled Oxygen Concentration - - Weight 104.8 kg (231 lb) 03/17/2025 1:52 PM CDT Height 177.8 cm (5' 10) 03/17/2025 1:52 PM CDT Body Mass Index 33.15 03/17/2025 1:52 PM CDT Results * ECG 12 lead (03/17/2025 1:50 PM CDT) us Arielle Rangel NP ECG ORDERABLES Edited R esult - Final * DEVICE CHECK - REMOTE (02/05/2025 4:22 AM CDT) Anatomical Region Laterality Modality Other 02/05/2025 4:22 AM CDT Narrative 02/16/2025 10:06 AM CDT Interpretation Summary: Battery and Leads (BL) Normal parameters noted on battery and lead(s) --- 9.3 yrs remaining longevity (implanted 2019). Lead impedance, sensing, and threshold trends stable and appropriate. No short V-V intervals. Presenting Rhythm (LA) Atrial Sensing-Ventricular Sensing (-VS) --- /VS (SR) 60s. Arrhythmic events (AE) No new arrhythmic events in monitoring period --- Since 11/06/24: No AHR or VHR episodes. Anticoagulation (AC) Patient is not on anticoagulant therapy Patient on antiplatelet therapy Transmission Information (TI) Device Summary Report Follow Up (FU) Patient's primary treating physician will be apprised of findings Procedure Note Yonathan Felix MD - 02/16/2025 Interpretation Summary: Battery and Leads (BL) Normal parameters noted on battery and lead(s) --- 9.3 yrs remaininglongevity (implanted 2019). Lead impedance, sensing, and thresholdtrends stable and appropriate. No short V-V intervals. Presenting Rhythm (LA) Atrial Sensing-Ventricular Sensing (-VS) --- /VS (SR) 60s. Arrhythmic events (AE) No new arrhythmic events in monitoring period --- Since 11/06/24: No AHRor VHR episodes. Anticoagulation (AC) Patient is not on anticoagulant therapy Patient on antiplatelet therapy Transmission Information (TI) Device Summary Report Follow Up (FU) Patient's primary treating physician will be apprised of findings Yonathan Felix MD [facility] PRO CEDURES Final Result * PSA diagnostic (06/06/2023 8:49 AM SPRAY MAKER) PSA-Total 1.87 <=3.90 ng/mL [facility] Comment: Interpretive Data AGE SEX REFERENCE INTERVAL 0 minutes-150 years Female None 0 minutes-49 years Male None 50-59 years Male 0-3.90 60-69 years Male 0-5.40 70-79 years Male 0-6.20 80-150 years Male 0-6.20 The Linette PSA Total assay procedure was used. Results from different manufacturers or methods may not be comparable. Serial testing should be performed using the same method. Current interpretive data last revised 21. Blood 06/06/2023 8:49 AM SPRAY MAKER 06/06/2023 9:11 AM SPRAY MAKER Juan Austin MD LAB BLOOD ORDERABLES Krystyna l Result [facility] [address] [facility] Department [place] [address] * Hepatitis C antibody (04/18/2020 3:25 PM SPRAY MAKER) Pathologist [facility] Hep C Ab Nonreactive Nonreactive [facility] Comment:Antibodies to HCV no t detected. Does NOT exclude the possibility of recent exposure to HCV. Blood specimen (specimen) 04/18/2020 3:25 PM SPRAY MAKER 04/18/2020 9:33 PM SPRAY MAKER Rosi Eng MD LAB MICROBIOLOGY - GENERAL ORD ERABLES Edited Result - Final [facility] Department [place] [address] from Last 3 Months or Most Recently Relevant to Health Maintenance
--- OUTSIDE RECORDS SUMMARY | 2025-03-26 00:25 | XMS_ITS | Clinical Summary ---
Author Organization [facility] Address [address], [address] [address] Phone Care Team Providers Care Booking Agent Name Role Phone Juan Austin MD Primary Care Provider [phone] Octavio Ye DO Unavailable [phone] Allergies Active Allergy Reactions Criticality Noted Date Comments Erythromycin Unknown 01/05/2016 Bupropion Hcl Unknown 01/05/2016 Medications levothyroxine (SYNTHROID) 100 MCG Tablet Take 100 mcg by mouth daily. Active zolpidem (AMBIEN) 10 MG Tablet Take 10 mg by mouth nightly as needed. Active Family History Medical History Relation Name Comments Abdominal Aortic Aneurysm Father Diabetes Father Lung Cancer Father Cancer Mother throat cancer Heart Disease Mother Relation Name Status Comments Father Mother Social History Tobacco Use Types Packs/Day Years Used Date Smoking Tobacco: Former Cigarettes Alcohol Use Standard Drinks/Week Comments Yes 0 (1 standard drink = 0.6 oz pur e alcohol) Sex and Gender Information Value Date Recorded Sex Assigned at Not on file Legal Sex Male 1:26 PM CDT Gender Identity Not on file Sexual Orientation Not on file Plan of Treatment Health Maintenance Due Date Last Done Comments Hepatitis C Virus (HCV) Screening 1965 TdaP Immunization 1965 Cologuard 2010 Immunochemical Fecal Occult Blood 2010 Pneumococcal Immunization (5 0+ years) (1 of 1 - PCV) 2015 Zoster Immunization (1 of 2) 2015 Influenza Immunization (#1) 2025 SARS-COV-2 Immunization (2023- season) 2025 Colonoscopy 01/01/2026 01/02/2016 Colorectal Cancer Screening 01/01/2026 Respiratory Syncytial Virus (RSV) Immunization (Adult) (1 - 1-dose 75+ series) 01/26/2040 Hepatitis B Immunization Aged Out No longer eligible based on patient's age to complete this topic Human Papillomavirus (HPV) Immunization Aged Out No longer eligible b ased on patient's age to complete this topic Meningococcal Immunization (ACWY) Aged Out No longer eligible based on patient's age to complete this topic Rotavirus Immunization Aged Out No lo nger eligible based on patient's age to complete this topic Procedures Procedure Name Priority Date/Time Associated Diagnosis Comments COLONOSCOPY Routine 01/02/2016 from Last 3 Months or Most Recently Relevant to Health Maintenance Results * COLONOSCOPY (01/02/2016) Juan Austin MD PROCEDURE/MINOR SURGICAL OR DERABLES Final Result from Last 3 Months or Most Recently Relevant to Health Maintenance Care Teams Booking Agent Relationship Specialty Start Date End Date Juan Austin MD [address] [address] PCP - General Family Medicine 01/04/16 Octavio Ye DO [address] [address] Gastroenterology 01/04/16
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
--- OUTSIDE RECORDS SUMMARY | 2025-03-26 00:26 | XMS_ITS | Encounter Summary ---
Author Organization [facility] Address [address] [place] [address] Phone Care Team Providers Care Bakery Machine Mechanic Name Role Phone Unknown, Notinfile Primary Care Provider Unavail able Juan Austin MD Primary Care Provider [phone] Alexander Pike MD Unavailable [phone] Miscellaneous, Not In File Unavailable Unava ilable Unknown, Notinfnat Primary Care Provider Unavail able Juan Austin MD Primary Care Provider [phone] Sherri Cat MD Unavailable [phone] Marianela Maki RN Unavailable Unava ilable Cabrera Lovell RN Unavailable Unav ailable Thier, Sac Unavailable Unavailable Thier, [place] Unavailable Unavailable Encounter Details Date Type Department Care Team (Late st Contact Info) Description 04/14/2020 Ophth Exam [facility] Medicine Ophthalmology [address] [place] [address] 1st [place] [address] Jutsa Kathleen MD [address] [place] [address] Social History Tobacco Use Types Packs/Day Years Used Date Smoking Tobacco: Never Smokeless Tobacco: Current Chew Alcohol Use Standard Drinks/Week Comments Yes 0 (1 standard drink = 0.6 oz pur e alcohol) Sex and Gender Information Value Date Recorded Sex Assigned at Not on file Legal Sex Male 2:24 AM OUTDOOR LANDSCAPE ARCHITECT Gender Identity Not on file Sexual Orientation Not on file documented as of this encounter Plan of Treatment Not on file documented as of this encounter Visit Diagnoses Not on filedocumented in this encounter Additional Health Concerns Infection Onset Date Last Indicated Resolved Time 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 03/29/2020 01/11/2021 5:00 AM CDT 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 09/27/2020 documented as of this encounter Eye Exam Neuro/Psych Oriented x3: Yes Mood/Affect: Normal External Exam Right eye Left eye External Normal Normal Slit Lamp Exam Right eye Left eye Lids/Lashes Normal Normal Conjunctiva/Sclera Tr injection Tr injection Cornea Large filament super iorly removed with proparacaine soaked qtip at bedside with small residual epi defect few filaments,SPEE, small likely old exposure plaque inf- no stain uptake Anterior Chamber Deep and quiet Deep and quiet Iris Round and reactive Round and nanette ctive Lens NS NS Vitreous Normal Normal Care Teams Bakery Machine Mechanic Relationship Specialty Start Date End Date Unknown, Notinfile PCP - General 03/05/20 04/18/20 Juan Austin MD [address] [address] PCP - General Family Medicine 04/19/20 04/19/20 Unknown, Notinfile PCP - General 04/20/20 04/21/20 Juan Austin MD [address] [address] PCP - General Family Medicine 04/22/20 Alexander Pike MD [address] [address] Surgeon Cardiothoracic Surgery 04/20/20 Miscellaneous, Not In File 04/20/20 Sherri Cat MD [address] [address] Title Searcher Cardiology 01/28/25 Marianela Maki, oil and gas specialistNewspaper Inserter 01/28/25 Cabrera Lovell, oil and gas specialistNewspaper Inserter 01/28/25 Bee Gandhi Primary High School Math Teacher Transplant 01/28/25 Bee Gandhi Primary High School Math Teacher 02/11/25 documented as of this encounter
--- OUTSIDE RECORDS SUMMARY | 2025-03-26 00:26 | XMS_ITS | Encounter Summary ---
Author Organization [facility] Healthcare Address [address] [place] [address] Care Team Providers Care Nitrating Acid Mixer Name Role Phone Unknown, Jenniferile Primary Care Provider Unavail able Juan Austin MD Primary Care Provider [phone] Alexander Pike MD Unavailable [phone] Miscellaneous, Not In File Unavailable Unava ilable Unknown, Notinfile Primary Care Provider Unavail able Juan Austin MD Primary Care Provider [phone] Sherri Cat MD Unavailable [phone] Marianela Maki RN Unavailable Unava ilable Cabrera Lovell RN Unavailable Unav ailable Bee Gandhi Unavailable Unavailable Bee Gandhi Unavailable Unavailable Encounter Details Date Type Department Care Team (Latest Contact Info) Description 04/11/2020 Ophth Exam Ophthalmology Justa Kathleen MD [address] [facility] [address] [place] [address] Social History Tobacco Use Types Packs/Day Years Used Date Smoking Tobacco: Never Smokeless Tobacco: Current Chew Alcohol Use Standard Drinks/Week Comments Yes 0 (1 standard drink = 0.6 oz pur e alcohol) Sex and Gender Information Value Date Recorded Sex Assigned at Not on file Legal Sex Male 2:24 AM INSTRUCTIONAL LEADER Gender Identity Not on file Sexual Orientation Not on file documented as of this encounter Plan of Treatment Not on file documented as of this encounter Visit Diagnoses Not on filedocumented in this encounter Additional Health Concerns Infection Onset Date Last Indicated Resolved Time 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 03/29/2020 01/11/2021 5:00 AM CDT 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 09/27/2020 documented as of this encounter Eye Exam Visual Acuity Right eye Left eye Near cc 20/25 20/25 Tonometry (Tonopen, 11:51 AM) Right eye Left eye Pressure 17 16 Pupils Dark Light Shape React APD Right eye 3 2 Round Brisk None Left eye 3 2 Round Brisk None Extraocular Movement Right eye Left eye Full Full Neuro/Psych Oriented x3: Yes Mood/Affect: Normal External Exam Right eye Left eye External Normal Normal Slit Lamp Exam Right eye Left eye Lids/Lashes Normal Normal Conjunctiva/Sclera Tr injection Tr injection Cornea few filaments superi jer, improved from prior few filaments,SPEE, small likely old exposure plaque- no stain uptake Anterior Chamber Deep and quiet Deep and quiet Iris Round and reactive Round and nanette ctive Lens NS NS Vitreous Normal Normal Care Teams Nitrating Acid Mixer Relationship Specialty Start Date End Date Unknown, Notinfile PCP - General 03/05/20 04/18/20 Juan Austin MD [address] [address] PCP - General Family Medicine 04/19/20 04/19/20 Unknown, Notinfile PCP - General 04/20/20 04/21/20 Juan Austin MD [address] [address] PCP - General Family Medicine 04/22/20 Alexander Pike MD [address] [address] Surgeon Cardiothoracic Surgery 04/20/20 Miscellaneous, Not In File 04/20/20 Sherri Cat MD [address] [address] Ironer Hand Cardiology 01/28/25 Marianela Maki, lpn home healthSocial Professionals 01/28/25 Cabrera Lovell, lpn home healthSocial Professionals 01/28/25 Bee Gandhi Primary Pest Controller Assistant Transplant 01/28/25 Bee Gandhi Primary Pest Controller Assistant 02/11/25 documented as of this encounter
--- OUTSIDE RECORDS SUMMARY | 2025-03-26 00:26 | XMS_ITS | Encounter Summary ---
Author Organization [facility] Address [address] [place] [address] Phone Care Team Providers Care Political Geographer Name Role Phone Alexander Pike MD Unavailable [phone] Miscellaneous, Not In File Unavailable Unava ilable Unknown, Notinfile Primary Care Provider Unavail able Juan Austin MD Primary Care Provider [phone] Sherri Cat MD Unavailable [phone] Marianela Maki RN Unavailable Unava ilable Cabrera Lovell RN Unavailable Unav ailable Bee Gandhi Unavailable Unavailable Bee Gandhi Unavailable Unavailable Encounter Details Date Type Department Care Team (Late st Contact Info) Description 04/20/[address] [facility] Medicine Ophthalmology [address] [place] [address] 1st [place] [phone] Gamal Bacon MD [address] [place] [address] [phone] [place] [address] Social History Tobacco Use Types Packs/Day Years Used Date Smoking Tobacco: Never Smokeless Tobacco: Current Chew Alcohol Use Standard Drinks/Week Comments Yes 0 (1 standard drink = 0.6 oz pur e alcohol) Sex and Gender Information Value Date Recorded Sex Assigned at Not on file Legal Sex Male 2:24 AM BUSINESS COMMUNICATIONS INSTRUCTOR Gender Identity Not on file Sexual Orientation [...] Visual Acuity Right eye Left eye Near sc 20/20-1 20/20 Tonometry (Tonopen, 1:59 PM) Right eye Left eye Pressure 12 12 Pupils Dark Light Shape React APD Right eye 4 2 Round Brisk None Left eye 4 2 Round Brisk None Extraocular Movement Right eye Left eye Full Full Neuro/Psych Oriented x3: Yes Mood/Affect: Normal External Exam Right eye Left eye External Normal Normal Slit Lamp Exam Right eye Left eye Lids/Lashes Normal Normal Conjunctiva/Sclera Tr injection Tr injection Cornea Clear, no stain Small likely old exposure plaque inf- no stain uptake Anterior Chamber Deep and quiet Deep and quiet Iris Round and reactive Round and nanette ctive Lens NS NS Anterior Vitreous Normal Normal Care Teams Political Geographer Relationship Specialty Start Date End Date Unknown, Notinfile PCP - General 04/20/20 04/21/20 Juan Austin MD [address] [address] PCP - General Family Medicine 04/22/20 Alexander Pike MD Surgeon Cardiothoracic Surgery 04/20/20 Miscellaneous, Not In File 04/20/20 Sherri Cat MD [address] [address] Manager Engagement Cardiology 01/28/25 Marianela Maki, developmental writing instructorPaper Twister Tender 01/28/25 Cabrera Lovell, developmental writing instructorPaper Twister Tender 01/28/25 Bee Gandhi Primary Industrial Health And Safety Professor Transplant 01/28/25 Bee Gandhi Primary Industrial Health And Safety Professor 02/11/25 documented as of this encounter
--- OUTSIDE RECORDS SUMMARY | 2025-03-26 00:26 | XMS_ITS | Encounter Summary ---
Author Organization [facility] Address [address] [place] [address] Phone Care Team Providers Care Jewelry Facer Name Role Phone Alexander iPke MD Unavailable [phone] Miscellaneous, Not In File Unavailable Unava ilable Juan Austin MD Primary Care Provider [phone] Sherri Cat MD Unavailable [phone] Marianela Maki RN Unavailable Unava ilable Cabrera Lovell RN Unavailable Unav ailable Bee Gandhi Unavailable Unavailable Bee Gandhi Unavailable Unavailable Encounter Details Date Type Department Care Team (Late st Contact Info) Description 03/12/2025 Telephone [facility] Medicine Cardiology [address] [facility] Advanced Medicine 8th [place] [address] [place] [address] Nina Ocasio Social History Tobacco Use Types Packs/Day Years [...] on file 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 RECEIVED CARDIAC RHYTHM DEVICE MANAGEMENT FORM AND IS UNABLE TO READ IT. 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 09/27/2020 documented as of this encounter Care Teams Jewelry Facer Relationship Specialty Start Date End Date Juan Austin MD [address] [address] PCP - General Family Medicine 04/22/20 Alexander Pike MD Surgeon Cardiothoracic Surgery 04/20/20 Miscellaneous, Not In File 04/20/20 Sherri Cat MD [address] [address] Printed Circuit Photographer Cardiology 01/28/25 Marianela Maki, equity traderRadar Technician 01/28/25 Cabrera Lovell RN Radar Technician 01/28/25 Bee Gandhi Primary Extrusion Die Coordinator Transplant 01/28/25 Bee Gandhi Primary Extrusion Die Coordinator 02/11/25 documented as of this encounter
--- OUTSIDE RECORDS SUMMARY | 2025-03-26 00:26 | XMS_ITS | Encounter Summary ---
Author Organization [facility] Address [address] [place] [address] Phone Care Team Providers Care Physician Ophthalmologist Name Role Phone Unknown, Notinfile Primary Care Provider Unavail able Juan Austin MD Primary Care Provider [phone] Alexander Pike MD Unavailable [phone] Miscellaneous, Not In File Unavailable Unava ilable Unknown, Notinfnat Primary Care Provider Unavail able Juan Austin MD Primary Care Provider [phone] Sherri Cat MD Unavailable [phone] Marianela Maki RN Unavailable Unava ilable Cabrera Lovell RN Unavailable Unav ailable Thier, Ransom Unavailable Unavailable Thier, Ransom Unavailable Unavailable Encounter Details Date Type Department Care Team (Late st Contact Info) Description 04/16/2020 Ophth Exam [facility] Medicine Ophthalmology [address] [place] [address] 1st [place] [phone] Megan Cross MD [address] [place] [address] Social History Tobacco Use Types Packs/Day Years Used Date Smoking Tobacco: Never Smokeless Tobacco: Current Chew Alcohol Use Standard Drinks/Week Comments Yes 0 (1 standard drink = 0.6 oz pur e alcohol) Sex and Gender Information Value Date Recorded Sex Assigned at Not on file 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 Gender Identity Not on file Sexual Orientation [...] Acuity Right eye Left eye Near cc 20/25-1 20/20-1 Tonometry (Tonopen, 9:09 PM) Right eye Left eye Pressure 16 17 Pupils Pupils Dark Light Shape React APD Right eye PERRL 4 2 Round Brisk None Left eye PERRL 4 2 Round Brisk None Extraocular Movement Right eye Left eye Full Full Neuro/Psych Oriented x3: Yes Mood/Affect: Normal External Exam Right eye Left eye External Normal Normal Slit Lamp Exam Right eye Left eye Lids/Lashes Normal Normal Conjunctiva/Sclera Tr injection Tr injection Cornea Clear, no stain Large inferonasa l filament, small likely old exposure plaque inf- no stain uptake Anterior Chamber Deep and quiet Deep and quiet Iris Round and reactive Round and nanette ctive Lens NS NS Anterior Vitreous Normal Normal Care Teams Physician Ophthalmologist Relationship Specialty Start Date End Date Unknown, Notinfile PCP - General 03/05/20 04/18/20 Juan Austin MD [address] [employer] [address] [address] PCP - General Family Medicine 04/19/20 04/19/20 Unknown, Notinfile PCP - General 04/20/20 04/21/20 Juan Austin MD [address] [employer] [address] [address] PCP - General Family Medicine 04/22/20 Alexander Pike MD [address] [employer] [address] [address] Surgeon Cardiothoracic Surgery 04/20/20 Miscellaneous, Not In File 04/20/20 Sherri Cat MD [address] [address] Heel Gouger Cardiology 01/28/25 Marianela Maki, assayerCaul Fat Puller 01/28/25 Cabrera Lovell, assayerCaul Fat Puller 01/28/25 Bee Gandhi Primary Fisheries Biologist Transplant 01/28/25 Bee Gandhi Primary Fisheries Biologist 02/11/25 documented as of this encounter
--- OUTSIDE RECORDS SUMMARY | 2025-03-26 00:26 | XMS_ITS | Encounter Summary ---
Author Organization [facility] Address [address] [place] [address] Phone Care Team Providers Care Windows Vmware Engineer Name Role Phone Alexander Pike MD Unavailable [phone] Miscellaneous, Not In File Unavailable Unava ilable Juan Austin MD Primary Care Provider [phone] Sherri Cat MD Unavailable [phone] Marianela Maki RN Unavailable Unava ilable Cabrera Lovell RN Unavailable Unav ailable Bee Gandhi Unavailable Unavailable Bee Gandhi Unavailable Unavailable Encounter Details Date Type Department Care Team (Late st Contact Info) Description 03/17/2025 Results Follow-Up [facility] Medicine Cardiology [address] [facility] Medical Office Building [address] [place] [address] Arielle Rangel, DONNA [address] [id number] ECG 12 lead Social History Tobacco Use Types Packs/Day Years [...] on file 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 Gender Identity Not on file Sexual Orientation Not on file documented as of this encounter Plan of Treatment Not on file documented as of this encounter Visit Diagnoses Not on filedocumented in this encounter Additional Health Concerns Infection Onset Date Last Indicated Resolved Time 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 09/27/2020 documented as of this encounter Care Teams Windows Vmware Engineer Relationship Specialty Start Date End Date Juan Austin MD [address] [address] PCP - General Family Medicine 04/22/20 Alexander Pike MD Surgeon Cardiothoracic Surgery 04/20/20 Miscellaneous, Not In File 04/20/20 Sherri Cat MD [address] [address] Talent Assistant Cardiology 01/28/25 Marianela Maki, bruise trimmerDirector Of Analytical Development 01/28/25 Cabrera Lovell, bruise trimmerDirector Of Analytical Development 01/28/25 Bee Gandhi Primary Steam Box Tender Transplant 01/28/25 Bee Gandhi Primary Steam Box Tender 02/11/25 documented as of this encounter
--- OUTSIDE RECORDS SUMMARY | 2025-03-26 00:26 | XMS_ITS | Encounter Summary ---
Author Organization [facility] Address [address] [place] [address] Phone Care Team Providers Care Risk Management Manager Name Role Phone Alexander Pike MD Unavailable [phone] Miscellaneous, Not In File Unavailable Unava ilable Juan Austin MD Primary Care Provider [phone] Sherri Cat MD Unavailable [phone] Marianela Maki RN Unavailable Unava ilable Cabrera Lovell RN Unavailable Unav ailable Bee Gandhi Unavailable Unavailable Bee Gandhi Unavailable Unavailable Encounter Details Date Type Department Care Team (Late st Contact Info) Description 03/11/2025 Telephone [facility] Medicine Cardiology [address] 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 * Telephone Encounter - Farheen Hendricks - 03/11/2025 10:05 AM CDT Isidro Pt returning call to schedule follow up device check and appt w/ CONTROL AREA OPERATOR or Dr Felix. 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 09/27/2020 documented as of this encounter Care Teams Risk Management Manager Relationship Specialty Start Date End Date Juan Austin MD [address] [address] PCP - General Family Medicine 04/22/20 Alexander Pike MD Surgeon Cardiothoracic Surgery 04/20/20 Miscellaneous, Not In File 04/20/20 Sherri Cat MD [address] [address] Hide Buffer Cardiology 01/28/25 Marianela Maki, labor relations or personnel negotiatorEnrollment Specialist 01/28/25 Cabrera Lovell, labor relations or personnel negotiatorEnrollment Specialist 01/28/25 Bee Gandhi Primary Weather Strip Installer Transplant 01/28/25 Bee Gandhi Primary Weather Strip Installer 02/11/25 documented as of this encounter
--- OUTSIDE RECORDS SUMMARY | 2025-03-26 00:26 | XMS_ITS | Encounter Summary ---
Author Organization [facility] Address [address] [place] [address] Care Team Providers Care Manager Pediatric Name Role Phone Unknown, Jenniferile Primary Care Provider Unavail able Juan Austin MD Primary Care Provider [phone] Alexander Pike MD Unavailable [phone] Miscellaneous, Not In File Unavailable Unava ilable Unknown, Notinfile Primary Care Provider Unavail able Juan Austin MD Primary Care Provider [phone] Sherri Cat MD Unavailable [phone] Marianela Maki RN Unavailable Unava ilable Cabrera Lovell RN Unavailable Unav ailable Bee Gandhi Unavailable Unavailable Bee Gandhi Unavailable Unavailable Encounter Details Date Type Department Care Team (Latest Contact Info) Description 04/10/2020 Ophth Exam Ophthalmology Justa Kathleen MD [address] [facility] [address] [place] [address] Social History Tobacco Use Types Packs/Day Years Used Date Smoking Tobacco: Never Smokeless Tobacco: Current Chew Alcohol Use Standard Drinks/Week Comments Yes 0 (1 standard drink = 0.6 oz pur e alcohol) Sex and Gender Information Value Date Recorded Sex Assigned at Not on file 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 [facility] with poor sustained [facility] Tonometry (Tonopen, 10:29 AM) Right eye Left eye Pressure 17 18 Pupils Dark Light Shape React APD Right eye 4 2 Round Brisk None Left eye 4 2 Round Brisk None Extraocular Movement Right eye Left eye Full Full Neuro/Psych Oriented x3: Yes External Exam Right eye Left eye External Normal Normal Slit Lamp Exam Right eye Left eye Lids/Lashes Normal Normal Conjunctiva/Sclera Tr injection Tr injection Cornea few pseudofilaments, attempted to remove with proparacaine soaked qtip, SPEE. Inferior likely resolving exposure plaque- no stain uptake there few pseudofilaments, attempted to remove with proparacaine soaked qtip, SPEE Anterior Chamber Deep and quiet Deep and quiet Iris Round and reactive Round and nanette ctive Lens NS NS Vitreous Normal Normal Care Teams Manager Pediatric Relationship Specialty Start Date End Date Unknown, Notinfile PCP - General 03/05/20 04/18/20 Juan Austin MD [address] [place] [address] PCP - General Family Medicine 04/19/20 04/19/20 Unknown, Notinfile PCP - General 04/20/20 04/21/20 Juan Austin MD [address] [address] PCP - General Family Medicine 04/22/20 Alexander Pike MD [address] [place] [place] [id number] Surgeon Cardiothoracic Surgery 04/20/20 Miscellaneous, Not In File 04/20/20 Sherri Cat MD [address] [address] Enterer Cardiology 01/28/25 Marianela Maki, director of graduate admissionsTechnical Support Representative 01/28/25 Cabrera Lovell, director of graduate admissionsTechnical Support Representative 01/28/25 Bee Gandhi Primary Director Title Transplant 01/28/25 Bee Gandhi Primary Director Title 02/11/25 documented as of this encounter
[2025-03-26 06:32] VITALS: BP 111/74; PULSE 78; RESP 14; TEMP 36.1; O2SAT 97
[2025-03-26] MEDS: LACTATED RINGERS 1,000 ML 150 ML IV CONT (06:32)
--- NOTE | 2025-03-26 07:10 | WPDANESEPPF ---
Anes - Initial Pre Proc Eval Procedure: Operation Date: 03/26/25 07:30 Proposed Procedures p Screening Colonoscopy - Peterson Morales MD Date/Time: 03/26/25 07:10 Surgeon: Peterson Morales MD Pre Op Diagnosis: Encounter for screening for malignant neoplasm of Patient Data Age: 60 Gender: M Height: 1.78 m Weight: 91.2 kg Last Vital Signs Temp 36.1 C L 03/26/25 06:32 Pulse 78 03/26/25 06:32 Resp 14 03/26/25 06:32 BP 111/74 03/26/25 06:32 Pulse Ox 97 03/26/25 06:32 O2 Del Method Room Air 03/26/25 06:32 Allergies Allergy/AdvReac Type Severity Reaction Status Date / Time bupropion Allergy Intermediate RASH Verified 03/26/25 06:21 Penicillins Allergy Intermediate Rash Verified 03/26/25 06:21 erythromycin base Allergy Unknown Dermatitis Verified 03/26/25 06:21 Home Medications ?Medication ?Instructions ?Recorded ?Confirmed ?Type cetirizine 10 mg tablet (Zyrtec) 10 mg PO DAILY PRN allergy symptoms 11/02/19 03/10/25 History atorvastatin 10 mg tablet 10 mg PO HS 06/21/20 03/26/25 History metoprolol succinate 25 mg 25 mg PO HS 06/21/20 03/26/25 History tablet,extended release 24 hr fluticasone propionate 50 1 spray intranasal BID #16 grams 11/04/20 03/10/25 Rx mcg/actuation nasal spray,suspension (Flonase Allergy Relief) empagliflozin 10 mg tablet 10 mg PO DAILY 07/07/23 03/26/25 History (Jardiance) hydralazine 25 mg tablet 25 mg PO BID 11/11/23 03/26/25 History isosorbide dinitrate 40 mg tablet 40 mg PO BID 11/11/23 03/26/25 History (Isordil) duloxetine 30 mg capsule,delayed 30 mg PO DAILY #30 caps 09/07/24 03/26/25 Rx release (Cymbalta) zolpidem 10 mg tablet 10 mg PO QHS PRN insomnia #30 tabs 10/23/24 03/10/25 Rx levothyroxine 125 mcg tablet 125 mcg PO DAILY #30 tabs 01/19/25 03/26/25 Rx clopidogrel 75 mg tablet (Plavix) 75 mg PO DAILY #90 tabs 02/09/25 03/26/25 Rx pregabalin 75 mg capsule 75 mg PO QPM 03/10/25 03/26/25 History Patient hx anesthesia problems: none Family hx anesthesia problems: none Results Review: All pre-operative results and documents have been reviewed as part of the pre-operative evaluation. [facility] Past Medical History Medical History Colon cancer screening patient reports normal exam around age 50. Encounter for wellness examination in adult Acute bronchitis Overweight (BMI 25.0-29.9) Vitamin B12 deficiency (05/09/22) level slightly low at 397 goal greater than 400 on 05/09/2022 with folic acid 11.9. Hemoglobin 16.1 on 07/01/2023. Level low at 328 on 11/20/2023. BMI 29.0-29.9,adult Essential hypertension Influenza (~04/02/22) Gastro-esophageal reflux disease without esophagitis BMI 30.0-30.9,adult Obesity (BMI 30.0-34.9) Vitamin D deficiency, unspecified Level low at 18 on 05/09/2022 with goal greater than 30. Level normal at 84 on 07/01/2023. Chronic kidney disease (CKD) stage G4/A3, severely decreased glomerular filtration rate (GFR) between 15-29 mL/min/1.73 square meter and albuminuria creatinine ratio greater than 300 mg/g BUN 27, creatinine 2.56 with GFR 25 on 12/19/2021. BUN 34, creatinine 2.36 on 06/27/2022. BUN 22, creatinine 2.11 on 07/01/2023 with PTH 63. BUN 25, creatinine 2.24 with GFR 33 on 11/20/2023. BUN 26, creatinine 2.09 with GFR 36 on 05/28/2024. BMI 28.0-28.9,adult Osteomyelitis of great toe of right foot right 1st, 3rd, and 4th toes Globus sensation BMI 26.0-26.9,adult Cellulitis and abscess of foot Anemia Hemoglobin 15.3 on 06/27/2022. Atherosclerotic heart disease of [place] coronary artery without angina pectoris Peripheral neuropathy Bleeding gastric ulcer Dry gangrene Acute kidney failure Hemothorax Acidosis Pleural effusion Encephalopathy Bleeding Acute respiratory failure Anoxic brain injury Cardiogenic shock ST elevation (STEMI) myocardial infarction Cardiac arrest Alcohol abuse Chronic anxiety Body mass index (bmi) 32.0-32.9, adult (09/29/18) PTSD (post-traumatic stress disorder) Family History Family History Mother Patient's mother is , Onset Age: 76 Family history of throat cancer High blood cholesterol Family history of cardiovascular disease Heart attack Diabetes mellitus Father Family history of malignant neoplasm, Onset Age: 82 High blood cholesterol Family history of cardiovascular disease Diabetes mellitus Pulmonary disease Social History Social History Years smoked: 40 Smoking status: Never smoker Tobacco type: smokeless tobacco Alcohol intake: former Substance use: current Substance use type: marijuana Other substance usage details: DAILY Lack of Transportation: No Lack of Food: Never True Current Housing: I Have Housing Concerned About Future Housing: No Difficulty Paying Gas/Electric Bills: No Difficulty Paying for Meds: No Currently Unemployed: No Education: Associate Degree Difficulty w/ Childcare or Family Care: No Living arrangements: with family Gender identity (if verbalized by the patient): Male Spiritual care concerns: No Anes - Eval Final PreProcedure Day of Procedure 03/26/25 07:10 Patient weight: overweight Heart: regular rate and rhythm Lungs: clear to auscultation Airway: Mallampati scale class II Neurological: alert and oriented Last oral intake: >/= 8 hours ASA classification: III Emergent: no Anesthetic plan: proceed Anesthesia type and monitoring: general GIVS and standard monitoring Results Review: All pre-operative results and documents have been reviewed as part of the pre-operative evaluation. Informed Consent: The patient's anesthetic plan and its attendant risks and benefits were discussed with the patient/family/POA. Questions were solicited and answers provided to the satisfaction of the patient/family/POA.
--- NOTE | 2025-03-26 07:27 | PM.HPGS ---
History of Present Illness History of Present Illness Consent: Risks, benefits, and alternatives have been discussed and questions answered. Patient agrees to proceed with procedure. Chief complaint: Encounter for screening for malignant neoplasm of Narrative: Peng Phillips is a 60 year old male here for screening colonoscopy, last one 10 years ago Review of Systems Review of Systems: All systems reviewed & are unremarkable except as noted in HPI and below PMFSH Past Medical History Medical History Colon cancer screening patient reports normal exam around age 50. Encounter for wellness examination in adult Acute bronchitis Overweight (BMI 25.0-29.9) Vitamin B12 deficiency (05/09/22) level slightly low at 397 goal greater than 400 on 05/09/2022 with folic acid 11.9. Hemoglobin 16.1 on 07/01/2023. Level low at 328 on 11/20/2023. BMI 29.0-29.9,adult Essential hypertension Influenza (~04/02/22) Gastro-esophageal reflux disease without esophagitis BMI 30.0-30.9,adult Obesity (BMI 30.0-34.9) Vitamin D deficiency, unspecified Level low at 18 on 05/09/2022 with goal greater than 30. Level normal at 84 on 07/01/2023. Chronic kidney disease (CKD) stage G4/A3, severely decreased glomerular filtration rate (GFR) between 15-29 mL/min/1.73 square meter and albuminuria creatinine ratio greater than 300 mg/g BUN 27, creatinine 2.56 with GFR 25 on 12/19/2021. BUN 34, creatinine 2.36 on 06/27/2022. BUN 22, creatinine 2.11 on 07/01/2023 with PTH 63. BUN 25, creatinine 2.24 with GFR 33 on 11/20/2023. BUN 26, creatinine 2.09 with GFR 36 on 05/28/2024. BMI 28.0-28.9,adult Osteomyelitis of great toe of right foot right 1st, 3rd, and 4th toes Globus sensation BMI 26.0-26.9,adult Cellulitis and abscess of foot Anemia Hemoglobin 15.3 on 06/27/2022. Atherosclerotic heart disease of [place] coronary artery without angina pectoris Peripheral neuropathy Bleeding gastric ulcer Dry gangrene Acute kidney failure Hemothorax Acidosis Pleural effusion Encephalopathy Bleeding Acute respiratory failure Anoxic brain injury Cardiogenic shock ST elevation (STEMI) myocardial infarction Cardiac arrest Alcohol abuse Chronic anxiety Body mass index (bmi) 32.0-32.9, adult (09/29/18) PTSD (post-traumatic stress disorder) Family History Family History Mother Patient's mother is , Onset Age: 76 Family history of throat cancer High blood cholesterol Family history of cardiovascular disease Heart attack Diabetes mellitus Father Family history of malignant neoplasm, Onset Age: 82 High blood cholesterol Family history of cardiovascular disease Diabetes mellitus Pulmonary disease Social History Social History Years smoked: 40 Smoking status: Never smoker Tobacco type: smokeless tobacco Alcohol intake: former Substance use: current Substance use type: marijuana Other substance usage details: DAILY Lack of Transportation: No Lack of Food: Never True Current Housing: I Have Housing Concerned About Future Housing: No Difficulty Paying Gas/Electric Bills: No Difficulty Paying for Meds: No Currently Unemployed: No Education: Associate Degree Difficulty w/ Childcare or Family Care: No Living arrangements: with family Gender identity (if verbalized by the patient): Male Spiritual care concerns: No Meds Home Medications and Allergies Home Medications ?Medication ?Instructions ?Recorded ?Confirmed ?Type cetirizine 10 mg tablet (Zyrtec) 10 mg PO DAILY PRN allergy symptoms 11/02/19 03/10/25 History atorvastatin 10 mg tablet 10 mg PO HS 06/21/20 03/26/25 History metoprolol succinate 25 mg 25 mg PO HS 06/21/20 03/26/25 History tablet,extended release 24 hr fluticasone propionate 50 1 spray intranasal BID #16 grams 11/04/20 03/10/25 Rx mcg/actuation nasal spray,suspension (Flonase Allergy Relief) empagliflozin 10 mg tablet 10 mg PO DAILY 07/07/23 03/26/25 History (Jardiance) hydralazine 25 mg tablet 25 mg PO BID 11/11/23 03/26/25 History isosorbide dinitrate 40 mg tablet 40 mg PO BID 11/11/23 03/26/25 History (Isordil) duloxetine 30 mg capsule,delayed 30 mg PO DAILY #30 caps 09/07/24 03/26/25 Rx release (Cymbalta) zolpidem 10 mg tablet 10 mg PO QHS PRN insomnia #30 tabs 10/23/24 03/10/25 Rx levothyroxine 125 mcg tablet 125 mcg PO DAILY #30 tabs 01/19/25 03/26/25 Rx clopidogrel 75 mg tablet (Plavix) 75 mg PO DAILY #90 tabs 02/09/25 03/26/25 Rx pregabalin 75 mg capsule 75 mg PO QPM 03/10/25 03/26/25 History Allergies Allergy/AdvReac Type Severity Reaction Status Date / Time bupropion Allergy Intermediate RASH Verified 03/26/25 06:21 Penicillins Allergy Intermediate Rash Verified 03/26/25 06:21 erythromycin base Allergy Unknown Dermatitis Verified 03/26/25 06:21 Vital Signs Vital Signs - 24 hr 03/26/25 06:32 Temperature 96.9 F L Pulse Rate 78 Respiratory Rate 14 Blood Pressure 111/74 Pulse Oximetry 97 Oxygen Delivery Room Air Exam Const: General: comfortable and no acute distress HENMT: Face/Nose/Sinus: Normal nares present Eyes: General: appearance normal, both eyes and all related structures Neck: Neck: no JVD Resp: Auscultation: clear to auscultation bilaterally Cardio: Rate: regular rate Rhythm: regular rhythm GI: Inspection: non-distended GI Palp: Yes Soft to palpation Skin: General skin exam: normal color Extrem: General: normal to inspection Psych: Mental Status: mental status grossly normal Assessment and Plan Assessment and plan (1) Colon cancer screening: Code(s): Z12.11 - Encounter for screening for malignant neoplasm of colon Status: Acute Assessment and Plan: colonoscopy
--- NOTE | 2025-03-26 07:46 | S_PTH ---
PATIENT: Peng Phillips LOC: [facility][id number] AGE/SX: 60/M ROOM: RE03/26/[address]: Peterson Morales MD : 1965 BED: DIS: 03/26/2025 SPEC #: [id number] RECD: 03/26/25 09:02 STATUS: KACIE REDanny #: [id number] EARNEST: 03/26/25 07:[address]: Peterson Morales DEPT: [facility] Surgical RECD BY: Tamanna Fields ENTERED: 03/26/25 09:02 SP TYPE: Surgical OTHR DR: Juan Austin MD Tissues: A - Colon Polypectomy Procedures: Hematoxylin and Eosin Stain Gross and Microscopic Level 4
[2025-03-26 07:48] VITALS: BP 90/66; PULSE 70; RESP 16; O2SAT 96
[2025-03-26 07:58] VITALS: BP 102/62; PULSE 65; RESP 22; O2SAT 97
[2025-03-26 08:08] VITALS: BP 101/74; PULSE 64; RESP 21; O2SAT 96
== END 2025-03-26 08:16 | disposition home or self-care (01) ==
PROVIDERS: PCP Family Medicine; Referring Provider Family Medicine; Visit Provider Internal Medicine Gastroenterology
PROC: 0DJD8ZZ Inspection of Lower Intestinal Tract, Via Natural or Artificial Opening Endoscopic (ICD-10-PCS; CPT 45378; principal; 2025-03-26 07:30)
DX: Z12.11 Encounter for screening for malignant neoplasm of colon (principal); K63.5 Polyp of colon; K64.8 Other hemorrhoids; F12.90 Cannabis use, unspecified, uncomplicated
CPT/HCPCS: 45385; 88305; J2003; J2704; J7120